=== PATIENT | female | born 1975 | race Caucasian/White ===

== ENCOUNTER 2020-02-06 12:44 | Inpatient (IN) ==
[2020-02-06] MEDS ORDERED: 0.9 % Sodium Chloride 1,000 ML IVC ONE (13:21)
[2020-02-06] MEDS ORDERED: *HR* LORazepam 2 MG/ML VIAL IVP ONE ×2 (13:24→16:34)
[2020-02-06 13:47] LABS: Basophils % 0.3 %; Immature Granulocytes % 0.3 % (0-4); Mean Corpuscular Volume 85.8 fL (83.0-100.0)
[2020-02-06 13:49] LABS: Hematocrit 30.1 % (35.3-44.9); Hemoglobin 9.3 g/dL (11.5-15.4); Immature Platelets 7.7 % (1.1-6.1); Lymphocytes # 0.3 K/mcL (0.6-4.6); Lymphocytes % 7.7 %; Mean Corpuscular HGB Conc 30.9 g/dL (31.6-35.5); Mean Corpuscular Hemoglobin 26.5 pg (28.0-33.3); Mean Platelet Volume 10.7 fL (9.4-12.4); Monocytes # 0.3 K/mcL (0.0-1.3); Monocytes % 9.7 %; Neutrophils # 2.9 K/mcL (1.6-8.9); Red Blood Count 3.51 M/mcL (3.82-4.97); Red Cell Distribution Width 17.6 % (11.5-14.5); White Blood Count 3.5 K/mcL (4.3-11.1)
[2020-02-06 14:11] LABS: Alanine Aminotransferase 49 Units/L (7-52); Albumin 4.1 g/dL (3.5-5.7); Albumin/Globulin Ratio 1.1 (1.1-2.2); Alkaline Phosphatase 81 Units/L (34-104); Aspartate Amino Transferase 147 Units/L (13-39); BUN/Creatinine Ratio 12 (6-26); Bilirubin,Total 2.2 mg/dL (0.3-1.0); Blood Urea Nitrogen 8 mg/dL (6-20); Calcium 8.6 mg/dL (8.6-10.3); Carbon Dioxide 17 mEq/L (23-29); Chloride 91 mEq/L (98-107); Globulin 3.8 g/dL (2.4-3.5); Glucose 105 mg/dL (70-105); Magnesium 1.3 mg/dL (1.6-2.6); Osmolality,Calculated 277 (280-300); Potassium 3.2 mEq/L (3.5-5.1); Sodium 134 mEq/L (136-145); Total Protein 7.9 g/dL (6.4-8.9); eGFR For African Americans > 60 (> 60); eGFR For Non-African Americans > 60 (> 60)
[2020-02-06 14:23] LABS: Platelet Count 25 K/mcL (140-400); Platelet Estimate Marked Decrease (Normal)
[2020-02-06 16:04] LABS: Amphetamine Screen,Urine Negative ng/mL (Cutoff=1000); Barbiturate Screen,Urine Negative ng/mL (Cutoff=200); Benzodiazepines Screen,Urine Positive ng/mL (Cutoff=200); Cannabinoid Screen,Urine Negative ng/mL (Cutoff = 50); Cocaine Screen,Urine Negative ng/mL (Cutoff= 300); Opiate Screen,Urine Negative ng/mL (Cutoff=300); Phencyclidine Screen,Urine Negative ng/mL (Cutoff=25)
[2020-02-06 16:06] LABS: Bacteria,Urine Few per hpf (None-Few); Bilirubin,Urine Small (Negative); Blood,Urine Small (Negative); Clarity,Urine Clear (Clear); Color,Urine Yellow (Yellow); Glucose,Urine (UA) Normal (Normal); Hyaline Casts,Urine Many per lpf (None Seen); Ketones,Urine 100 mg/dL (Negative); Leukocyte Esterase,Urine Negative (Negative); Mucus,Urine Few per lpf (None-Few); Nitrite,Urine Negative (Negative); Protein,Urine 70 mg/dL (Neg-Trace); RBC,Urine 0-3 per hpf (0-3); Specific Gravity,Urine 1.023 (1.010-1.025); Squamous Epithelial Cell,Urine Few per hpf (None-Few); WBC,Urine 0-3 per hpf (0-3)
[2020-02-06] MEDS ORDERED: Ondansetron 4 MG/2 ML VIAL IVP PRN (17:14)
[2020-02-06] MEDS ORDERED: Naloxone 0.4 MG/ML INJ IVP PRN (17:14)
[2020-02-06] MEDS ORDERED: *HR* LORazepam 2 MG/ML VIAL IVP PRN ×2 (17:15)
[2020-02-06] MEDS: Thiamine (B-1) 100 MG, Folic Acid 1 MG, MVI, adult with vitamin K 10 ML in 0.9 % Sodi... IVPB SCH (18:07)
[2020-02-06] MEDS: *HR* LORazepam 2 MG/ML VIAL IVP PRN (20:26)
[2020-02-06] MEDS: Nicotine 21 MG PATCH.TD24 TD SCH (22:06)
[2020-02-07] MEDS: *HR* LORazepam 2 MG/ML VIAL IVP PRN ×2 (00:46→11:55)
[2020-02-07] MEDS: 0.9 % Sodium Chloride 1,000 ML IVC SCH ×2 (01:21→13:55)
[2020-02-07 02:39] LABS: Eosinophils % 0.4 %; Immature Granulocytes % 0.4 % (0-4); Lymphocytes % 26.3 %
[2020-02-07 02:41] LABS: Hemoglobin 8.4 g/dL (11.5-15.4); Immature Platelets 9.1 % (1.1-6.1); Lymphocytes # 0.7 K/mcL (0.6-4.6); Mean Corpuscular Hemoglobin 25.8 pg (28.0-33.3); Mean Corpuscular Volume 86.2 fL (83.0-100.0); Mean Platelet Volume 10.6 fL (9.4-12.4); Monocytes # 0.3 K/mcL (0.0-1.3); Monocytes % 10.4 %; Neutrophils # 1.6 K/mcL (1.6-8.9); Red Blood Count 3.25 M/mcL (3.82-4.97); Red Cell Distribution Width 17.5 % (11.5-14.5); Segmented Neutrophils % 62.5 %; White Blood Count 2.5 K/mcL (4.3-11.1)
[2020-02-07 02:46] LABS: Alanine Aminotransferase 46 Units/L (7-52); Albumin 3.8 g/dL (3.5-5.7); Albumin/Globulin Ratio 1.1 (1.1-2.2); Alkaline Phosphatase 73 Units/L (34-104); Aspartate Amino Transferase 149 Units/L (13-39); BUN/Creatinine Ratio 10 (6-26); Bilirubin,Total 1.9 mg/dL (0.3-1.0); Blood Urea Nitrogen 6 mg/dL (6-20); Calcium 7.9 mg/dL (8.6-10.3); Carbon Dioxide 23 mEq/L (23-29); Chloride 98 mEq/L (98-107); Globulin 3.5 g/dL (2.4-3.5); Glucose 65 mg/dL (70-105); Magnesium 1.2 mg/dL (1.6-2.6); Osmolality,Calculated 272 (280-300); Potassium 3.7 mEq/L (3.5-5.1); Sodium 133 mEq/L (136-145); Total Protein 7.3 g/dL (6.4-8.9); eGFR For African Americans > 60 (> 60); eGFR For Non-African Americans > 60 (> 60)
[2020-02-07 02:50] LABS: Platelet Count 22 K/mcL (140-400)
[2020-02-07] MEDS: Nicotine 21 MG PATCH.TD24 TD SCH (09:12)
[2020-02-07] MEDS: Topiramate 25 MG TABLET PO SCH (09:13)
[2020-02-07] MEDS: Folic Acid 1 MG TABLET PO SCH (09:13)
[2020-02-07] MEDS: risperiDONE 1 MG TABLET PO SCH (09:13)
[2020-02-07] MEDS ORDERED: Isovue-370 500 ML BOTTLE IVP ONE (12:19)
[2020-02-07] MEDS ORDERED: Calcium Gluconate 1gm/50mL 1 GM/50 ML BAG IVPB ONE (12:20)
[2020-02-07] MEDS: Thiamine (B-1) 100 MG, Folic Acid 1 MG, MVI, adult with vitamin K 10 ML in 0.9 % Sodi... IVPB SCH (18:10)
[2020-02-07 18:29] LABS: Immature Reticulocyte % 23.4 % (11.0-38.0); Retculocyte # 0.04 M/mcL (0.05-0.10); Reticulocyte % 1.2 % (1.6-2.8)
[2020-02-07 18:33] LABS: Basophils % 0.4 %; Eosinophils % 0.4 %; Hemoglobin 8.2 g/dL (11.5-15.4); Immature Platelets 8.8 % (1.1-6.1); Lymphocytes # 0.5 K/mcL (0.6-4.6); Lymphocytes % 21.7 %; Mean Corpuscular HGB Conc 30.4 g/dL (31.6-35.5); Mean Corpuscular Hemoglobin 26.1 pg (28.0-33.3); Mean Platelet Volume 9.4 fL (9.4-12.4); Monocytes # 0.2 K/mcL (0.0-1.3); Monocytes % 9.6 %; Neutrophils # 1.6 K/mcL (1.6-8.9); Red Blood Count 3.14 M/mcL (3.82-4.97); Red Cell Distribution Width 17.5 % (11.5-14.5); Segmented Neutrophils % 67.9 %; White Blood Count 2.3 K/mcL (4.3-11.1)
[2020-02-07 18:35] LABS: Platelet Count 24 K/mcL (140-400)
[2020-02-07 18:47] LABS: % Iron Saturation 5 % (15-50); BUN/Creatinine Ratio 10 (6-26); Blood Urea Nitrogen 6 mg/dL (6-20); Calcium 8.9 mg/dL (8.6-10.3); Carbon Dioxide 26 mEq/L (23-29); Chloride 98 mEq/L (98-107); Glucose 131 mg/dL (70-105); Iron 23 mcg/dL (50-170); Lactate Dehydrogenase 205 Units/L (140-271); Magnesium 1.9 mg/dL (1.6-2.6); Osmolality,Calculated 273 (280-300); Potassium 3.6 mEq/L (3.5-5.1); Sodium 132 mEq/L (136-145); Transferrin 316 mg/dL (203-362); eGFR For African Americans > 60 (> 60); eGFR For Non-African Americans > 60 (> 60)
[2020-02-07 18:52] LABS: Platelet Estimate Marked Decrease (Normal)
[2020-02-07 19:06] LABS: Ferritin 59 ng/mL (10-120)
[2020-02-07 19:10] LABS: Folate 20.3 ng/mL (3.0-16.0)
[2020-02-07] MEDS ORDERED: traZODone 50 MG TABLET PO SCH (21:00)
[2020-02-08 04:05] LABS: Basophils % 0.5 %; Eosinophils % 1.6 %; Hematocrit 26.9 % (35.3-44.9); Hemoglobin 8.1 g/dL (11.5-15.4); Lymphocytes # 0.6 K/mcL (0.6-4.6); Lymphocytes % 32.8 %; Mean Corpuscular HGB Conc 30.1 g/dL (31.6-35.5); Mean Corpuscular Hemoglobin 26.6 pg (28.0-33.3); Mean Corpuscular Volume 88.2 fL (83.0-100.0); Monocytes # 0.2 K/mcL (0.0-1.3); Monocytes % 10.1 %; Red Blood Count 3.05 M/mcL (3.82-4.97); Red Cell Distribution Width 17.8 % (11.5-14.5); White Blood Count 1.9 K/mcL (4.3-11.1)
[2020-02-08 04:06] LABS: Neutrophils # 1.1 K/mcL (1.6-8.9); Platelet Count 25 K/mcL (140-400)
[2020-02-08 04:19] LABS: Anisocytosis 1+ (Not Present); Platelet Estimate Marked Decrease (Normal); Polychromasia 1+ (Not Present)
[2020-02-08 04:21] LABS: Magnesium 1.6 mg/dL (1.6-2.6)
[2020-02-08 04:23] LABS: Alanine Aminotransferase 46 Units/L (7-52); Albumin 3.6 g/dL (3.5-5.7); Albumin/Globulin Ratio 1.1 (1.1-2.2); Alkaline Phosphatase 93 Units/L (34-104); Aspartate Amino Transferase 130 Units/L (13-39); BUN/Creatinine Ratio 11 (6-26); Bilirubin,Total 1.8 mg/dL (0.3-1.0); Blood Urea Nitrogen 6 mg/dL (6-20); Calcium 8.8 mg/dL (8.6-10.3); Carbon Dioxide 24 mEq/L (23-29); Chloride 102 mEq/L (98-107); Globulin 3.4 g/dL (2.4-3.5); Glucose 85 mg/dL (70-105); Osmolality,Calculated 279 (280-300); Potassium 3.4 mEq/L (3.5-5.1); Sodium 136 mEq/L (136-145); eGFR For African Americans > 60 (> 60); eGFR For Non-African Americans > 60 (> 60)
[2020-02-08] MEDS: Topiramate 25 MG TABLET PO SCH ×2 (07:57→09:36)
[2020-02-08] MEDS: Nicotine 21 MG PATCH.TD24 TD SCH (07:58)
[2020-02-08] MEDS: risperiDONE 1 MG TABLET PO SCH ×2 (07:58→19:44)
[2020-02-08] MEDS: Folic Acid 1 MG TABLET PO SCH (07:58)
[2020-02-08] MEDS ORDERED: Magnesium Sulfate 1 GM/102 ML PIGGYBACK IVPB ONE (08:31)
[2020-02-08] MEDS ORDERED: Fluticasone Propionate Nasal 50 MCG/SPRAY BOTTLE NS PRN (09:00)
[2020-02-08] MEDS: Loratadine 10 MG TABLET PO SCH (09:36)
[2020-02-08] MEDS: Gabapentin 400 MG CAPSULE PO SCH ×3 (09:36→19:43)
[2020-02-08] MEDS: Cholecalciferol (D-3) 1,000 UNIT (25MCG) TABLET PO SCH (09:36)
[2020-02-08] MEDS: Budesonide/Formoterol 80/4.5 1 PUFF INH IH SCH ×2 (10:45→21:59)
[2020-02-08] MEDS ORDERED: Magnesium Oxide 400 MG TABLET PO ONE (11:15)
[2020-02-08] MEDS: *HR* LORazepam 2 MG/ML VIAL IVP PRN (15:52)
[2020-02-08] MEDS: Thiamine (B-1) 500 MG in 0.9 % Sodium Chloride 50 ML IVPB SCH (18:01)
[2020-02-08] MEDS ORDERED: Haloperidol Lactate 5 MG/ML VIAL IVP PRN (18:29)
[2020-02-08] MEDS ORDERED: *HR* LORazepam 2 MG/ML VIAL IM STA (19:20)
[2020-02-08] MEDS: traZODone 50 MG TABLET PO SCH (19:44)
[2020-02-08] MEDS: Melatonin 3 MG TABLET PO SCH (19:44)
[2020-02-08] MEDS: Dexmedetomidine HCl 400 MCG/100 ML MLS IVC SCH (20:59)
[2020-02-09 05:22] LABS: Basophils % 0.6 %
[2020-02-09 05:24] LABS: Eosinophils # 0.1 K/mcL (0.0-0.6); Eosinophils % 3.1 %; Hematocrit 26.5 % (35.3-44.9); Hemoglobin 7.9 g/dL (11.5-15.4); Immature Platelets 7.1 % (1.1-6.1); Lymphocytes # 0.6 K/mcL (0.6-4.6); Lymphocytes % 38.3 %; Mean Corpuscular HGB Conc 29.8 g/dL (31.6-35.5); Mean Corpuscular Volume 90.4 fL (83.0-100.0); Mean Platelet Volume 10.5 fL (9.4-12.4); Monocytes # 0.2 K/mcL (0.0-1.3); Monocytes % 10.5 %; Neutrophils # 0.8 K/mcL (1.6-8.9); Red Blood Count 2.93 M/mcL (3.82-4.97); Red Cell Distribution Width 18.6 % (11.5-14.5); Segmented Neutrophils % 47.5 %; White Blood Count 1.6 K/mcL (4.3-11.1)
[2020-02-09 05:28] LABS: Platelet Count 29 K/mcL (140-400)
[2020-02-09 05:42] LABS: BUN/Creatinine Ratio 15 (6-26); Blood Urea Nitrogen 7 mg/dL (6-20); Calcium 9.3 mg/dL (8.6-10.3); Carbon Dioxide 22 mEq/L (23-29); Chloride 104 mEq/L (98-107); Glucose 97 mg/dL (70-105); Magnesium 1.4 mg/dL (1.6-2.6); Osmolality,Calculated 280 (280-300); Potassium 3.6 mEq/L (3.5-5.1); Sodium 136 mEq/L (136-145); eGFR For African Americans > 60 (> 60); eGFR For Non-African Americans > 60 (> 60)
[2020-02-09 05:49] LABS: Hypochromasia Present (Not Present); Platelet Estimate Decreased (Normal)
[2020-02-09 05:50] LABS: Anisocytosis 1+ (Not Present)
[2020-02-09] MEDS: Gabapentin 400 MG CAPSULE PO SCH ×3 (08:34→20:45)
[2020-02-09] MEDS: Folic Acid 1 MG TABLET PO SCH (08:34)
[2020-02-09] MEDS: Cholecalciferol (D-3) 1,000 UNIT (25MCG) TABLET PO SCH (08:34)
[2020-02-09] MEDS: Topiramate 25 MG TABLET PO SCH (08:35)
[2020-02-09] MEDS: Loratadine 10 MG TABLET PO SCH (08:35)
[2020-02-09] MEDS: Thiamine (B-1) 500 MG in 0.9 % Sodium Chloride 50 ML IVPB SCH (08:36)
[2020-02-09] MEDS: risperiDONE 1 MG TABLET PO SCH ×2 (08:36→20:45)
[2020-02-09] MEDS: Nicotine 21 MG PATCH.TD24 TD SCH (08:36)
[2020-02-09] MEDS: Budesonide/Formoterol 80/4.5 1 PUFF INH IH SCH ×2 (09:51→22:06)
[2020-02-09] MEDS ORDERED: Iron Sucrose Complex 400 MG in 0.9 % Sodium Chloride 250 ML IVPB ONE (10:53)
[2020-02-09 14:11] LABS: Amphetamines NEGATIVE ng/mL (Cutoff 30); Barbiturates NEGATIVE ng/mL (Cutoff 75); Buprenorphine NEGATIVE ng/mL (Cutoff 1); Cocaine NEGATIVE ng/mL (Cutoff 30); Methadone NEGATIVE ng/mL (Cutoff 40); Methamphetamines NEGATIVE ng/mL (Cutoff 30); Opiates NEGATIVE ng/mL (Cutoff 30); Phencyclidine NEGATIVE ng/mL (Cutoff 15)
[2020-02-09 15:57] LABS: Benzodiazepines POSITIVE ng/mL (Cutoff 75)
[2020-02-09] MEDS: Dexmedetomidine HCl 400 MCG/100 ML MLS IVC SCH (18:46)
[2020-02-09] MEDS: traZODone 50 MG TABLET PO SCH (20:45)
[2020-02-09] MEDS: Melatonin 3 MG TABLET PO SCH (20:45)
[2020-02-10 05:19] LABS: Hemoglobin 8.5 g/dL (11.5-15.4)
[2020-02-10 05:21] LABS: Basophils % 0.7 %; Eosinophils % 1.3 %; Hematocrit 28.8 % (35.3-44.9); Immature Platelets 8.2 % (1.1-6.1); Lymphocytes # 0.5 K/mcL (0.6-4.6); Lymphocytes % 32.5 %; Mean Corpuscular HGB Conc 29.5 g/dL (31.6-35.5); Mean Corpuscular Hemoglobin 26.3 pg (28.0-33.3); Mean Corpuscular Volume 89.2 fL (83.0-100.0); Mean Platelet Volume 10.4 fL (9.4-12.4); Monocytes # 0.2 K/mcL (0.0-1.3); Monocytes % 13.2 %; Neutrophils # 0.8 K/mcL (1.6-8.9); Red Blood Count 3.23 M/mcL (3.82-4.97); Segmented Neutrophils % 52.3 %; White Blood Count 1.5 K/mcL (4.3-11.1)
[2020-02-10 05:37] LABS: BUN/Creatinine Ratio 14 (6-26); Blood Urea Nitrogen 9 mg/dL (6-20); Calcium 9.5 mg/dL (8.6-10.3); Carbon Dioxide 25 mEq/L (23-29); Chloride 104 mEq/L (98-107); Glucose 111 mg/dL (70-105); Osmolality,Calculated 285 (280-300); Sodium 138 mEq/L (136-145); eGFR For African Americans > 60 (> 60); eGFR For Non-African Americans > 60 (> 60)
[2020-02-10 05:42] LABS: Platelet Count 39 K/mcL (140-400)
[2020-02-10 06:20] LABS: Anisocytosis 1+ (Not Present)
[2020-02-10 06:21] LABS: Platelet Estimate Marked Decrease (Normal)
[2020-02-10] MEDS: risperiDONE 1 MG TABLET PO SCH ×2 (08:27→20:01)
[2020-02-10] MEDS: Cholecalciferol (D-3) 1,000 UNIT (25MCG) TABLET PO SCH (08:27)
[2020-02-10] MEDS: Nicotine 21 MG PATCH.TD24 TD SCH (08:27)
[2020-02-10] MEDS: Loratadine 10 MG TABLET PO SCH (08:28)
[2020-02-10] MEDS: Gabapentin 400 MG CAPSULE PO SCH ×3 (08:28→19:59)
[2020-02-10] MEDS: Folic Acid 1 MG TABLET PO SCH (08:28)
[2020-02-10] MEDS: Topiramate 25 MG TABLET PO SCH (08:28)
[2020-02-10] MEDS: Budesonide/Formoterol 80/4.5 1 PUFF INH IH SCH ×2 (10:08→21:48)
[2020-02-10] MEDS: Dexmedetomidine HCl 400 MCG/100 ML MLS IVC SCH (18:25)
[2020-02-10] MEDS: Melatonin 3 MG TABLET PO SCH (19:59)
[2020-02-10] MEDS: traZODone 50 MG TABLET PO SCH (20:00)
[2020-02-11 00:30] LABS: 7-aminoclonazepam Conf <5 ng/mL; Alpha-hydroxyalprazolam Conf <5 ng/mL; Alprazolam Confirmation <5 ng/mL; Chlordiazepoxide Conf <20 ng/mL; Clonazepam Conf <5 ng/mL; Midazolam Confirmation <20 ng/mL; Oxazepam Confirmation <20 ng/mL; Temazepam Confirmation <20 ng/mL
[2020-02-11 07:16] VITALS: BP 122/82
[2020-02-11] MEDS: Nicotine 21 MG PATCH.TD24 TD SCH (07:37)
[2020-02-11] MEDS: Folic Acid 1 MG TABLET PO SCH (07:38)
[2020-02-11] MEDS: Topiramate 25 MG TABLET PO SCH (07:38)
[2020-02-11] MEDS: Loratadine 10 MG TABLET PO SCH (07:39)
[2020-02-11] MEDS: Cholecalciferol (D-3) 1,000 UNIT (25MCG) TABLET PO SCH (07:39)
[2020-02-11] MEDS: Gabapentin 400 MG CAPSULE PO SCH (07:40)
[2020-02-11] MEDS: risperiDONE 1 MG TABLET PO SCH (07:40)
[2020-02-11 08:21] LABS: Basophils % 0.5 %; Hemoglobin 8.9 g/dL (11.5-15.4); Red Cell Distribution Width 20.1 % (11.5-14.5)
[2020-02-11 08:23] LABS: Eosinophils # 0.1 K/mcL (0.0-0.6); Hematocrit 29.9 % (35.3-44.9); Immature Granulocytes % 0.5 % (0-4); Immature Platelets 6.1 % (1.1-6.1); Lymphocytes # 0.6 K/mcL (0.6-4.6); Mean Corpuscular HGB Conc 29.8 g/dL (31.6-35.5); Mean Corpuscular Volume 90.6 fL (83.0-100.0); Mean Platelet Volume 10.5 fL (9.4-12.4); Monocytes # 0.4 K/mcL (0.0-1.3); Monocytes % 17.8 %; Neutrophils # 0.9 K/mcL (1.6-8.9); Segmented Neutrophils % 46.2 %
[2020-02-11 08:25] LABS: Platelet Count 55 K/mcL (140-400)
[2020-02-11 08:41] LABS: BUN/Creatinine Ratio 19 (6-26); Blood Urea Nitrogen 11 mg/dL (6-20); Calcium 9.2 mg/dL (8.6-10.3); Carbon Dioxide 25 mEq/L (23-29); Chloride 105 mEq/L (98-107); Glucose 100 mg/dL (70-105); Osmolality,Calculated 285 (280-300); Sodium 138 mEq/L (136-145); eGFR For African Americans > 60 (> 60); eGFR For Non-African Americans > 60 (> 60)
[2020-02-11 09:07] LABS: Anisocytosis 1+ (Not Present); Hypochromasia Present (Not Present); Platelet Estimate Decreased (Normal)
[2020-02-11] MEDS: Budesonide/Formoterol 80/4.5 1 PUFF INH IH SCH (10:03)
[2020-02-11 10:09] LABS: Alpha-hydroxymidazolam Conf <20 ng/mL; Diazepam Confirmation <5 ng/mL; Lorazepam Confirmation 32 ng/mL; Nordiazepam Confirmation 54 ng/mL
== END 2020-02-11 11:30 | disposition home or self-care (01) | DRG 897 ==
LOC: 3BNU 12:44 → EMEROOARM 12:44 → SUATTDRO 18:24 → 3BNU 19:44 → SUATTDRO 02-08 11:44 → 2NNU 02-08 20:47 → 3ANU 02-10 15:33
PROVIDERS: ADMIT Internal Medicine; ATTEND Internal Medicine

== ENCOUNTER 2020-10-11 21:36 | Inpatient (IN) ==
[2020-10-11] MEDS ORDERED: Naloxone 0.4 MG/ML INJ IVP PRN (23:20)
[2020-10-11] MEDS: Ondansetron 4 MG/2 ML VIAL IVP PRN (23:54)
[2020-10-11] MEDS: Dexmedetomidine HCl 400 MCG/100 ML MLS IVC SCH (23:55)
[2020-10-12] MEDS: Vitamin B Complex/Vit C/Vit E 1 EACH TABLET PO SCH ×2 (00:05→07:40)
[2020-10-12 00:22] LABS: Eosinophils % 0.2 %; Hemoglobin 12.9 g/dL (11.5-15.4); Immature Granulocytes % 0.2 % (0-4); Mean Corpuscular HGB Conc 33.2 g/dL (31.6-35.5); Mean Corpuscular Volume 104.3 fL (83.0-100.0); Red Cell Distribution Width 11.9 % (11.5-14.5)
[2020-10-12 00:24] LABS: Basophils % 0.2 %; Hematocrit 38.8 % (35.3-44.9); Immature Platelets 2.9 % (1.1-6.1); Lymphocytes # 1.4 K/mcL (0.6-4.6); Lymphocytes % 34.4 %; Mean Corpuscular Hemoglobin 34.7 pg (28.0-33.3); Mean Platelet Volume 9.3 fL (9.4-12.4); Monocytes # 0.3 K/mcL (0.0-1.3); Monocytes % 6.8 %; Neutrophils # 2.4 K/mcL (1.6-8.9); Platelet Count 47 K/mcL (140-400); Red Blood Count 3.72 M/mcL (3.82-4.97); Segmented Neutrophils % 58.2 %; White Blood Count 4.1 K/mcL (4.3-11.1)
[2020-10-12 00:31] LABS: INR 1.3; Prothrombin Time 15.3 Seconds (9.4-12.1)
[2020-10-12 00:41] LABS: Alanine Aminotransferase 82 Units/L (7-52); Albumin 4.3 g/dL (3.5-5.7); Albumin/Globulin Ratio 1.1 (1.1-2.2); Alkaline Phosphatase 80 Units/L (34-104); Aspartate Amino Transferase 148 Units/L (13-39); BUN/Creatinine Ratio 11 (6-26); Bilirubin,Total 1.7 mg/dL (0.3-1.0); Blood Urea Nitrogen 6 mg/dL (6-20); Calcium 8.5 mg/dL (8.6-10.3); Carbon Dioxide 13 mEq/L (23-29); Chloride 94 mEq/L (98-107); Globulin 3.9 g/dL (2.4-3.5); Glucose 56 mg/dL (70-105); Lipase 43 Units/L (11-82); Magnesium 1.6 mg/dL (1.6-2.6); Osmolality,Calculated 269 (280-300); Phosphorous 2.5 mg/dL (2.7-4.5); Potassium 4.1 mEq/L (3.5-5.1); Sodium 132 mEq/L (136-145); Total Protein 8.2 g/dL (6.4-8.9); Troponin I < 0.03 ng/mL (< 0.04); eGFR For African Americans > 60 (> 60); eGFR For Non-African Americans > 60 (> 60)
[2020-10-12] MEDS ORDERED: D5% in Water 1,000 ML IVC PRN (01:02)
[2020-10-12] MEDS ORDERED: *HR* Dextrose 50 % in Water (Vial) 50 ML VIAL IVP PRN (01:02)
[2020-10-12] MEDS ORDERED: Dextrose Gel 15 GM/37.5 ML TUBE PO PRN ×2 (01:02)
[2020-10-12] MEDS: Ringers Solution, Lactated 1,000 ML IVC SCH ×2 (04:00→12:42)
[2020-10-12] MEDS: Ipratropium/Albuterol Neb 3 ML IH SCH ×5 (04:06→20:27)
[2020-10-12 06:19] LABS: Hematocrit 38.4 % (35.3-44.9); Hemoglobin 12.7 g/dL (11.5-15.4); Immature Platelets 2.9 % (1.1-6.1); Mean Corpuscular HGB Conc 33.1 g/dL (31.6-35.5); Mean Corpuscular Hemoglobin 34.3 pg (28.0-33.3); Mean Corpuscular Volume 103.8 fL (83.0-100.0); Mean Platelet Volume 9.8 fL (9.4-12.4); Red Blood Count 3.7 M/mcL (3.82-4.97); Red Cell Distribution Width 11.8 % (11.5-14.5); White Blood Count 3.1 K/mcL (4.3-11.1)
[2020-10-12] MEDS: Pantoprazole 40 MG VIAL IVP SCH ×2 (06:29→17:27)
[2020-10-12] MEDS: Budesonide/Formoterol 160/4.5 1 PUFF INH IH SCH ×2 (07:26→20:27)
[2020-10-12] MEDS: Ondansetron 4 MG/2 ML VIAL IVP PRN (07:51)
[2020-10-12] MEDS ORDERED: Folic Acid 1 MG TABLET PO SCH (09:00)
[2020-10-12] MEDS: cefTRIAXone 1,000 MG in Water for inj. (sterile) 10 ML IVP SCH (11:20)
[2020-10-12] MEDS ORDERED: Acetaminophen 325 MG TABLET PO PRN (12:50)
[2020-10-12] MEDS: Dexmedetomidine HCl 400 MCG/100 ML MLS IVC SCH (15:22)
[2020-10-12] MEDS: Thiamine (B-1) 100 MG, Folic Acid 1 MG, MVI, adult with vitamin K 10 ML in 0.9 % Sodi... IVPB SCH (17:28)
[2020-10-12 17:39] LABS: BUN/Creatinine Ratio 10 (6-26); Blood Urea Nitrogen 7 mg/dL (6-20); Calcium 8.7 mg/dL (8.6-10.3); Carbon Dioxide 15 mEq/L (23-29); Chloride 94 mEq/L (98-107); Glucose 80 mg/dL (70-105); Osmolality,Calculated 267 (280-300); Potassium 4.2 mEq/L (3.5-5.1); Sodium 130 mEq/L (136-145); eGFR For African Americans > 60 (> 60); eGFR For Non-African Americans > 60 (> 60)
[2020-10-12] MEDS: D5% in 0.45% NACL 1,000 ML IVC SCH (17:41)
[2020-10-12] MEDS ORDERED: traZODone 50 MG TABLET PO ONE (19:54)
[2020-10-12] MEDS: Melatonin 3 MG TABLET PO SCH (20:22)
[2020-10-12] MEDS: risperiDONE 1 MG TABLET PO SCH (20:22)
[2020-10-12] MEDS: Magnesium Oxide 400 MG TABLET PO SCH (20:23)
[2020-10-12] MEDS: Topiramate 100 MG TABLET PO SCH (20:23)
[2020-10-12] MEDS ORDERED: Ipratropium/Albuterol Neb 3 ML IH PRN (23:47)
[2020-10-13 00:31] LABS: Basophils % 0.5 %; Eosinophils % 1.5 %; Hematocrit 34.3 % (35.3-44.9); Hemoglobin 11.5 g/dL (11.5-15.4); Immature Platelets 3.2 % (1.1-6.1); Lymphocytes # 0.6 K/mcL (0.6-4.6); Lymphocytes % 30.4 %; Mean Corpuscular HGB Conc 33.5 g/dL (31.6-35.5); Mean Corpuscular Hemoglobin 34.8 pg (28.0-33.3); Mean Corpuscular Volume 103.9 fL (83.0-100.0); Mean Platelet Volume 9.6 fL (9.4-12.4); Monocytes # 0.1 K/mcL (0.0-1.3); Monocytes % 6.9 %; Neutrophils # 1.2 K/mcL (1.6-8.9); Red Cell Distribution Width 11.5 % (11.5-14.5); Segmented Neutrophils % 60.7 %
[2020-10-13 00:32] LABS: Platelet Count 31 K/mcL (140-400)
[2020-10-13 00:50] LABS: Alanine Aminotransferase 66 Units/L (7-52); Albumin 3.8 g/dL (3.5-5.7); Albumin/Globulin Ratio 1.2 (1.1-2.2); Alkaline Phosphatase 65 Units/L (34-104); Aspartate Amino Transferase 128 Units/L (13-39); BUN/Creatinine Ratio 10 (6-26); Bilirubin,Total 1.5 mg/dL (0.3-1.0); Blood Urea Nitrogen 6 mg/dL (6-20); Calcium 8.5 mg/dL (8.6-10.3); Carbon Dioxide 20 mEq/L (23-29); Chloride 99 mEq/L (98-107); Globulin 3.3 g/dL (2.4-3.5); Glucose 101 mg/dL (70-105); Osmolality,Calculated 272 (280-300); Sodium 132 mEq/L (136-145); Total Protein 7.1 g/dL (6.4-8.9); eGFR For African Americans > 60 (> 60); eGFR For Non-African Americans > 60 (> 60)
[2020-10-13] MEDS: Pantoprazole 40 MG VIAL IVP SCH ×2 (05:56→17:47)
[2020-10-13] MEDS: D5% in 0.45% NACL 1,000 ML IVC SCH (07:47)
[2020-10-13] MEDS: Magnesium Oxide 400 MG TABLET PO SCH ×2 (09:13→20:02)
[2020-10-13] MEDS: cefTRIAXone 1,000 MG in Water for inj. (sterile) 10 ML IVP SCH (09:13)
[2020-10-13] MEDS: Topiramate 25 MG TABLET PO SCH (09:14)
[2020-10-13] MEDS: Budesonide/Formoterol 160/4.5 1 PUFF INH IH SCH ×2 (09:17→20:04)
[2020-10-13] MEDS ORDERED: diazePAM 10 MG/2 ML SYRINGE IVP PRN ×5 (12:18)
[2020-10-13] MEDS: Thiamine (B-1) 100 MG, Folic Acid 1 MG, MVI, adult with vitamin K 10 ML in 0.9 % Sodi... IVPB SCH (18:03)
[2020-10-13] MEDS: Melatonin 3 MG TABLET PO SCH (20:03)
[2020-10-13] MEDS: Topiramate 100 MG TABLET PO SCH (20:03)
[2020-10-13] MEDS: risperiDONE 1 MG TABLET PO SCH (20:03)
[2020-10-14] MEDS: Pantoprazole 40 MG VIAL IVP SCH (05:18)
[2020-10-14 05:37] LABS: Eosinophils # 0.1 K/mcL (0.0-0.6); Eosinophils % 2.3 %; Hematocrit 38.2 % (35.3-44.9); Hemoglobin 12.8 g/dL (11.5-15.4); Immature Granulocytes % 0.9 % (0-4); Lymphocytes # 0.5 K/mcL (0.6-4.6); Lymphocytes % 22.8 %; Mean Corpuscular HGB Conc 33.5 g/dL (31.6-35.5); Mean Corpuscular Hemoglobin 34.4 pg (28.0-33.3); Mean Corpuscular Volume 102.7 fL (83.0-100.0); Mean Platelet Volume 10.5 fL (9.4-12.4); Monocytes # 0.1 K/mcL (0.0-1.3); Monocytes % 6.4 %; Neutrophils # 1.5 K/mcL (1.6-8.9); Red Blood Count 3.72 M/mcL (3.82-4.97); Red Cell Distribution Width 11.7 % (11.5-14.5); Segmented Neutrophils % 67.6 %; White Blood Count 2.2 K/mcL (4.3-11.1)
[2020-10-14 05:42] LABS: Platelet Count 26 K/mcL (140-400)
[2020-10-14 05:56] LABS: Alanine Aminotransferase 81 Units/L (7-52); Albumin 4.2 g/dL (3.5-5.7); Albumin/Globulin Ratio 1.2 (1.1-2.2); Alkaline Phosphatase 91 Units/L (34-104); Aspartate Amino Transferase 152 Units/L (13-39); BUN/Creatinine Ratio 11 (6-26); Bilirubin,Total 1.9 mg/dL (0.3-1.0); Blood Urea Nitrogen 7 mg/dL (6-20); Calcium 9.4 mg/dL (8.6-10.3); Carbon Dioxide 22 mEq/L (23-29); Chloride 100 mEq/L (98-107); Globulin 3.6 g/dL (2.4-3.5); Glucose 113 mg/dL (70-105); Osmolality,Calculated 271 (280-300); Potassium 3.6 mEq/L (3.5-5.1); Sodium 131 mEq/L (136-145); Total Protein 7.8 g/dL (6.4-8.9); eGFR For African Americans > 60 (> 60); eGFR For Non-African Americans > 60 (> 60)
[2020-10-14] MEDS: Budesonide/Formoterol 160/4.5 1 PUFF INH IH SCH (07:08)
[2020-10-14] MEDS: Magnesium Oxide 400 MG TABLET PO SCH (08:05)
[2020-10-14] MEDS: cefTRIAXone 1,000 MG in Water for inj. (sterile) 10 ML IVP SCH (08:05)
[2020-10-14] MEDS: Topiramate 25 MG TABLET PO SCH (08:05)
[2020-10-14 08:21] VITALS: BP 132/96
== END 2020-10-14 09:14 | disposition home or self-care (01) | DRG 896 ==
LOC: 2NENU → SUATTDRO 10-12 13:00 → 2NNU 10-12 17:55 → 3ANU 10-13 16:11
PROVIDERS: ADMIT Student in an Organized Health Care Education/Training Program; ATTEND Family Medicine

== ENCOUNTER 2021-01-02 23:14 | Inpatient (IN) ==
[2021-01-03] MEDS ORDERED: 0.9 % Sodium Chloride 1,000 ML IVC ONE (00:17)
[2021-01-03] MEDS ORDERED: *HR* HYDROmorphone (PF) 1 MG/ML SYRINGE IVP ONE (00:40)
[2021-01-03] MEDS ORDERED: Naloxone 0.4 MG/ML INJ IVP PRN (01:01)
[2021-01-03] MEDS ORDERED: Acetaminophen 325 MG TABLET PO PRN (01:01)
[2021-01-03] MEDS ORDERED: *HR* HYDROmorphone (PF) 1 MG/ML SYRINGE IVP PRN (01:03)
[2021-01-03 02:33] LABS: Eosinophils % 1.6 %; Hematocrit 39.8 % (35.3-44.9); Lymphocytes % 50.4 %; Mean Corpuscular HGB Conc 32.7 g/dL (31.6-35.5); Red Cell Distribution Width 13.2 % (11.5-14.5)
[2021-01-03 02:35] LABS: Basophils % 0.8 %; Immature Platelets 3.9 % (1.1-6.1); Lymphocytes # 1.3 K/mcL (0.6-4.6); Mean Corpuscular Hemoglobin 33.5 pg (28.0-33.3); Mean Corpuscular Volume 102.6 fL (83.0-100.0); Mean Platelet Volume 10.2 fL (9.4-12.4); Monocytes # 0.3 K/mcL (0.0-1.3); Monocytes % 10.4 %; Neutrophils # 0.9 K/mcL (1.6-8.9); Red Blood Count 3.88 M/mcL (3.82-4.97); Segmented Neutrophils % 36.8 %; White Blood Count 2.5 K/mcL (4.3-11.1)
[2021-01-03] MEDS: Ringers Solution, Lactated 1,000 ML IVC SCH ×4 (02:36→20:34)
[2021-01-03 02:38] LABS: Platelet Count 28 K/mcL (140-400)
[2021-01-03 02:40] LABS: INR 1.4; Prothrombin Time 16.1 Seconds (9.4-12.1)
[2021-01-03 02:52] LABS: Alanine Aminotransferase 58 Units/L (7-52); Albumin 3.9 g/dL (3.5-5.7); Albumin/Globulin Ratio 1.3 (1.1-2.2); Alkaline Phosphatase 74 Units/L (34-104); Amylase 289 Units/L (29-103); Aspartate Amino Transferase 179 Units/L (13-39); BUN/Creatinine Ratio 10 (6-26); Bilirubin,Total 0.8 mg/dL (0.3-1.0); Blood Urea Nitrogen 5 mg/dL (6-20); Calcium 7.9 mg/dL (8.6-10.3); Carbon Dioxide 23 mEq/L (23-29); Chloride 104 mEq/L (98-107); Ethanol 286 mg/dL (Less than 10); Globulin 2.9 g/dL (2.4-3.5); Glucose 63 mg/dL (70-105); Magnesium 1.3 mg/dL (1.6-2.6); Osmolality,Calculated 283 (280-300); Potassium 3.8 mEq/L (3.5-5.1); Sodium 139 mEq/L (136-145); Total Protein 6.8 g/dL (6.4-8.9); eGFR For African Americans > 60 (> 60); eGFR For Non-African Americans > 60 (> 60)
[2021-01-03] MEDS: Ondansetron 4 MG/2 ML VIAL IVP PRN ×2 (02:56→16:12)
[2021-01-03 03:01] LABS: Bilirubin,Urine Negative (Negative); Blood,Urine Negative (Negative); Clarity,Urine Clear (Clear); Color,Urine Light-Yellow (Yellow); Glucose,Urine (UA) Normal (Normal); Ketones,Urine 10 mg/dL (Negative); Leukocyte Esterase,Urine Negative (Negative); Nitrite,Urine Negative (Negative); Protein,Urine Trace mg/dL (Neg-Trace); Urobilinogen,Urine Normal (Normal)
[2021-01-03 03:17] LABS: Amphetamine Screen,Urine Negative ng/mL (Cutoff=1000); Barbiturate Screen,Urine Negative ng/mL (Cutoff=200); Benzodiazepines Screen,Urine Negative ng/mL (Cutoff=200); Cannabinoid Screen,Urine Negative ng/mL (Cutoff = 50); Cocaine Screen,Urine Negative ng/mL (Cutoff= 300); Opiate Screen,Urine Positive ng/mL (Cutoff=300); Phencyclidine Screen,Urine Negative ng/mL (Cutoff=25)
[2021-01-03] MEDS ORDERED: Magnesium Oxide 400 MG TABLET PO ONE (03:23)
[2021-01-03] MEDS ORDERED: diazePAM 10 MG/2 ML SYRINGE IVP PRN ×3 (09:17)
[2021-01-03] MEDS: Thiamine (B-1) 100 MG TABLET PO SCH (09:19)
[2021-01-03] MEDS: Folic Acid 1 MG TABLET PO SCH (09:19)
[2021-01-03] MEDS ORDERED: Calcium Gluconate 1gm/50mL 1 GM/50 ML BAG IVPB ONE (12:10)
[2021-01-03] MEDS: Gabapentin 300 MG CAPSULE PO SCH ×2 (15:30→20:27)
[2021-01-03] MEDS: *HR* HYDROmorphone (PF) 1 MG/ML SYRINGE IVP PRN ×2 (16:09→20:27)
[2021-01-03] MEDS: Budesonide/Formoterol 80/4.5 1 PUFF INH IH SCH (19:47)
[2021-01-03] MEDS: risperiDONE 1 MG TABLET PO SCH (20:26)
[2021-01-03] MEDS: traZODone 50 MG TABLET PO SCH (20:27)
[2021-01-03] MEDS: Topiramate 100 MG TABLET PO SCH (20:27)
[2021-01-04] MEDS: Ringers Solution, Lactated 1,000 ML IVC SCH ×2 (04:54→11:36)
[2021-01-04] MEDS: *HR* HYDROmorphone (PF) 1 MG/ML SYRINGE IVP PRN (04:57)
[2021-01-04 05:34] LABS: Red Cell Distribution Width 12.7 % (11.5-14.5)
[2021-01-04 05:36] LABS: Eosinophils % 1.6 %; Hematocrit 35.6 % (35.3-44.9); Hemoglobin 11.6 g/dL (11.5-15.4); Immature Platelets 4.2 % (1.1-6.1); Lymphocytes # 0.5 K/mcL (0.6-4.6); Lymphocytes % 40.2 %; Mean Corpuscular HGB Conc 32.6 g/dL (31.6-35.5); Mean Corpuscular Hemoglobin 33.6 pg (28.0-33.3); Mean Corpuscular Volume 103.2 fL (83.0-100.0); Mean Platelet Volume 9.4 fL (9.4-12.4); Monocytes # 0.2 K/mcL (0.0-1.3); Monocytes % 17.2 %; Neutrophils # 0.5 K/mcL (1.6-8.9); Red Blood Count 3.45 M/mcL (3.82-4.97); White Blood Count 1.2 K/mcL (4.3-11.1)
[2021-01-04 05:39] LABS: Platelet Count 18 K/mcL (140-400)
[2021-01-04 05:50] LABS: Alanine Aminotransferase 43 Units/L (7-52); Albumin 3.5 g/dL (3.5-5.7); Albumin/Globulin Ratio 1.3 (1.1-2.2); Alkaline Phosphatase 62 Units/L (34-104); Aspartate Amino Transferase 116 Units/L (13-39); BUN/Creatinine Ratio 10 (6-26); Bilirubin,Total 1.2 mg/dL (0.3-1.0); Blood Urea Nitrogen 5 mg/dL (6-20); Calcium 8.3 mg/dL (8.6-10.3); Carbon Dioxide 25 mEq/L (23-29); Chloride 98 mEq/L (98-107); Globulin 2.7 g/dL (2.4-3.5); Glucose 67 mg/dL (70-105); Magnesium 1.6 mg/dL (1.6-2.6); Osmolality,Calculated 276 (280-300); Phosphorous 2.3 mg/dL (2.7-4.5); Potassium 3.8 mEq/L (3.5-5.1); Sodium 135 mEq/L (136-145); Total Protein 6.2 g/dL (6.4-8.9); eGFR For African Americans > 60 (> 60); eGFR For Non-African Americans > 60 (> 60)
[2021-01-04] MEDS: Budesonide/Formoterol 80/4.5 1 PUFF INH IH SCH ×2 (07:32→20:28)
[2021-01-04] MEDS: Thiamine (B-1) 100 MG TABLET PO SCH (08:09)
[2021-01-04] MEDS: Gabapentin 300 MG CAPSULE PO SCH ×3 (08:10→20:29)
[2021-01-04] MEDS: Folic Acid 1 MG TABLET PO SCH (08:10)
[2021-01-04] MEDS: Topiramate 25 MG TABLET PO SCH (08:10)
[2021-01-04 08:12] LABS: Hepatitis B Surface Antigen Nonreactive (Nonreactive)
[2021-01-04] MEDS ORDERED: diazePAM 10 MG/2 ML SYRINGE IVP PRN (08:23)
[2021-01-04 08:40] LABS: Hepatitis B Core IgM Nonreactive (Nonreactive)
[2021-01-04 08:42] LABS: Hepatitis A Antibody IgM Nonreactive (Nonreactive)
[2021-01-04 11:14] LABS: Hepatitis C Virus Antibody Reactive (Nonreactive)
[2021-01-04] MEDS ORDERED: Ringers Solution, Lactated 1,000 ML IVC SCH (12:15)
[2021-01-04] MEDS ORDERED: Furosemide 20 MG/2 ML VIAL IVP ONE (13:19)
[2021-01-04] MEDS: cefTRIAXone 1,000 MG in Water for inj. (sterile) 10 ML IVP SCH (13:38)
[2021-01-04] MEDS: Azithromycin 500 MG in 0.9 % Sodium Chloride 250 ML IVPB SCH (13:39)
[2021-01-04] MEDS: traZODone 50 MG TABLET PO SCH (20:30)
[2021-01-04] MEDS: Topiramate 100 MG TABLET PO SCH (20:30)
[2021-01-04] MEDS: risperiDONE 1 MG TABLET PO SCH (20:30)
[2021-01-05 03:25] LABS: Basophils % 0.8 %; Eosinophils % 1.6 %; Hemoglobin 11.9 g/dL (11.5-15.4); Immature Platelets 6.5 % (1.1-6.1); Lymphocytes % 42.2 %; Mean Corpuscular HGB Conc 33.1 g/dL (31.6-35.5); Mean Corpuscular Hemoglobin 33.9 pg (28.0-33.3); Mean Corpuscular Volume 102.6 fL (83.0-100.0); Mean Platelet Volume 10.9 fL (9.4-12.4); Monocytes # 0.2 K/mcL (0.0-1.3); Monocytes % 16.4 %; Neutrophils # 0.5 K/mcL (1.6-8.9); Nucleated Red Blood Cells 1.6 /100 WBC (0); Red Blood Count 3.51 M/mcL (3.82-4.97); Red Cell Distribution Width 12.8 % (11.5-14.5); White Blood Count 1.3 K/mcL (4.3-11.1)
[2021-01-05 03:28] LABS: Lymphocytes # 0.6 K/mcL (0.6-4.6)
[2021-01-05 03:31] LABS: Platelet Count 23 K/mcL (140-400)
[2021-01-05 03:45] LABS: BUN/Creatinine Ratio 8 (6-26); Blood Urea Nitrogen 4 mg/dL (6-20); Calcium 9.3 mg/dL (8.6-10.3); Carbon Dioxide 24 mEq/L (23-29); Chloride 102 mEq/L (98-107); Glucose 112 mg/dL (70-105); Magnesium 1.3 mg/dL (1.6-2.6); Osmolality,Calculated 278 (280-300); Phosphorous 2.7 mg/dL (2.7-4.5); Potassium 3.5 mEq/L (3.5-5.1); Sodium 135 mEq/L (136-145); eGFR For African Americans > 60 (> 60); eGFR For Non-African Americans > 60 (> 60)
[2021-01-05 04:02] LABS: Platelet Estimate Marked Decrease (Normal)
[2021-01-05] MEDS: Thiamine (B-1) 100 MG TABLET PO SCH (08:06)
[2021-01-05] MEDS: Topiramate 25 MG TABLET PO SCH (08:06)
[2021-01-05] MEDS: Gabapentin 300 MG CAPSULE PO SCH ×3 (08:06→20:22)
[2021-01-05] MEDS: cefTRIAXone 1,000 MG in Water for inj. (sterile) 10 ML IVP SCH (08:07)
[2021-01-05] MEDS: Folic Acid 1 MG TABLET PO SCH (08:07)
[2021-01-05] MEDS: Budesonide/Formoterol 80/4.5 1 PUFF INH IH SCH ×2 (10:05→22:32)
[2021-01-05] MEDS: Azithromycin 500 MG in 0.9 % Sodium Chloride 250 ML IVPB SCH (15:22)
[2021-01-05] MEDS: Topiramate 100 MG TABLET PO SCH (20:21)
[2021-01-05] MEDS: risperiDONE 1 MG TABLET PO SCH (20:22)
[2021-01-05] MEDS: traZODone 50 MG TABLET PO SCH (20:22)
[2021-01-06 05:26] LABS: Basophils % 0.7 %; Immature Granulocytes % 0.7 % (0-4)
[2021-01-06 05:29] LABS: Eosinophils % 1.4 %; Hematocrit 37.4 % (35.3-44.9); Hemoglobin 12.1 g/dL (11.5-15.4); Immature Platelets 7.8 % (1.1-6.1); Lymphocytes % 39.1 %; Mean Corpuscular HGB Conc 32.4 g/dL (31.6-35.5); Mean Corpuscular Hemoglobin 33.2 pg (28.0-33.3); Mean Corpuscular Volume 102.5 fL (83.0-100.0); Mean Platelet Volume 11.3 fL (9.4-12.4); Monocytes # 0.2 K/mcL (0.0-1.3); Monocytes % 15.2 %; Neutrophils # 0.6 K/mcL (1.6-8.9); Red Blood Count 3.65 M/mcL (3.82-4.97); Red Cell Distribution Width 12.7 % (11.5-14.5); Segmented Neutrophils % 42.9 %; White Blood Count 1.4 K/mcL (4.3-11.1)
[2021-01-06 05:30] LABS: Lymphocytes # 0.6 K/mcL (0.6-4.6)
[2021-01-06 05:32] LABS: Platelet Count 25 K/mcL (140-400)
[2021-01-06 05:49] LABS: BUN/Creatinine Ratio 11 (6-26); Blood Urea Nitrogen 5 mg/dL (6-20); Calcium 9.4 mg/dL (8.6-10.3); Carbon Dioxide 20 mEq/L (23-29); Chloride 105 mEq/L (98-107); Glucose 116 mg/dL (70-105); Magnesium 1.2 mg/dL (1.6-2.6); Osmolality,Calculated 280 (280-300); Phosphorous 3.2 mg/dL (2.7-4.5); Potassium 3.4 mEq/L (3.5-5.1); Sodium 136 mEq/L (136-145); eGFR For African Americans > 60 (> 60); eGFR For Non-African Americans > 60 (> 60)
[2021-01-06] MEDS: Budesonide/Formoterol 80/4.5 1 PUFF INH IH SCH (07:34)
[2021-01-06] MEDS: Thiamine (B-1) 100 MG TABLET PO SCH (08:08)
[2021-01-06] MEDS: Gabapentin 300 MG CAPSULE PO SCH (08:08)
[2021-01-06] MEDS: Folic Acid 1 MG TABLET PO SCH (08:09)
[2021-01-06] MEDS: Topiramate 25 MG TABLET PO SCH (08:09)
[2021-01-06] MEDS: cefTRIAXone 1,000 MG in Water for inj. (sterile) 10 ML IVP SCH (08:10)
[2021-01-06 11:01] VITALS: BP 133/89
== END 2021-01-06 11:58 | disposition home or self-care (01) | DRG 438 ==
LOC: EMEROOARM 23:14 → 3BNU 23:14 → SUATTDRO 01-03 14:55
PROVIDERS: ADMIT Internal Medicine; ATTEND Internal Medicine

== ENCOUNTER 2021-02-12 16:30 | Inpatient (IN) ==
[2021-02-12] MEDS ORDERED: Naloxone 0.4 MG/ML INJ IVP PRN (19:33)
[2021-02-12] MEDS: Ondansetron ODT 4 MG TAB.RAPDIS SL PRN ×2 (19:56→23:21)
[2021-02-12 20:14] LABS: Basophils % 0.4 %; Mean Corpuscular Volume 100.5 fL (83.0-100.0)
[2021-02-12 20:16] LABS: Eosinophils % 0.9 %; Hematocrit 36.9 % (35.3-44.9); Hemoglobin 12.3 g/dL (11.5-15.4); Immature Platelets 4.3 % (1.1-6.1); Lymphocytes % 27.9 %; Mean Corpuscular HGB Conc 33.3 g/dL (31.6-35.5); Mean Corpuscular Hemoglobin 33.5 pg (28.0-33.3); Mean Platelet Volume 9.7 fL (9.4-12.4); Monocytes # 0.2 K/mcL (0.0-1.3); Monocytes % 7.7 %; Red Blood Count 3.67 M/mcL (3.82-4.97); White Blood Count 2.3 K/mcL (4.3-11.1)
[2021-02-12] MEDS: 0.9 % Sodium Chloride 1,000 ML IVC SCH (20:19)
[2021-02-12 20:32] LABS: INR 1.3; Prothrombin Time 14.8 Seconds (9.4-12.1)
[2021-02-12 20:36] LABS: Chol/HDL Ratio 2.6 (0-4.9); Cholesterol 213 mg/dL (< 200); HDL Cholesterol 82 mg/dL (40-59); LDL Cholesterol,Calculated 117 mg/dL (< 100); Magnesium 1.2 mg/dL (1.6-2.6); Triglycerides 68 mg/dL (< 150)
[2021-02-12 20:37] LABS: BUN/Creatinine Ratio 13 (6-26); Blood Urea Nitrogen 6 mg/dL (6-20); Calcium 8.7 mg/dL (8.6-10.3); Carbon Dioxide 23 mEq/L (23-29); Chloride 102 mEq/L (98-107); Glucose 87 mg/dL (70-105); Osmolality,Calculated 283 (280-300); Potassium 3.6 mEq/L (3.5-5.1); Sodium 138 mEq/L (136-145); eGFR For African Americans > 60 (> 60); eGFR For Non-African Americans > 60 (> 60)
[2021-02-12 20:38] LABS: Albumin 3.9 g/dL (3.5-5.7); Albumin/Globulin Ratio 1.3 (1.1-2.2); Bilirubin,Direct 0.4 mg/dL (0.0-0.2); Bilirubin,Indirect 0.7 mg/dL (0.0-1.0); Bilirubin,Total 1.1 mg/dL (0.3-1.0); Total Protein 6.9 g/dL (6.4-8.9)
[2021-02-12 20:43] LABS: Troponin I < 0.03 ng/mL (< 0.04)
[2021-02-12 20:58] LABS: Lymphocytes # 0.6 K/mcL (0.6-4.6); Thyroid Stimulating Hormone 1.358 mcIU/mL (0.340-5.600)
[2021-02-12 21:02] LABS: Neutrophils # 1.4 K/mcL (1.6-8.9); Platelet Count 15 K/mcL (140-400)
[2021-02-12 21:04] LABS: Platelet Estimate Marked Decrease (Normal)
[2021-02-12] MEDS ORDERED: diazePAM 10 MG/2 ML SYRINGE IVP STA (21:24)
[2021-02-12 21:26] LABS: Bilirubin,Urine Negative (Negative); Blood,Urine Negative (Negative); Clarity,Urine Clear (Clear); Color,Urine Yellow (Yellow); Glucose,Urine (UA) Normal (Normal); Ketones,Urine Negative (Negative); Leukocyte Esterase,Urine Negative (Negative); Nitrite,Urine Negative (Negative); PH,Urine 6.5 pH Units (5.0-8.0); Protein,Urine Negative (Neg-Trace); Specific Gravity,Urine 1.015 (1.010-1.025)
[2021-02-12 21:47] LABS: Lipase 74 Units/L (11-82)
[2021-02-13] MEDS ORDERED: Prochlorperazine 10 MG/2 ML VIAL IVP PRN (01:21)
[2021-02-13] MEDS: diazePAM 10 MG/2 ML SYRINGE IVP PRN ×6 (01:38→20:04)
[2021-02-13] MEDS: 0.9 % Sodium Chloride 1,000 ML IVC SCH (05:22)
[2021-02-13 05:34] LABS: BUN/Creatinine Ratio 12 (6-26); Blood Urea Nitrogen 5 mg/dL (6-20); Calcium 8.1 mg/dL (8.6-10.3); Carbon Dioxide 22 mEq/L (23-29); Chloride 100 mEq/L (98-107); Ethanol 58 mg/dL (Less than 10); Glucose 80 mg/dL (70-105); Osmolality,Calculated 278 (280-300); Potassium 3.4 mEq/L (3.5-5.1); Sodium 136 mEq/L (136-145); eGFR For African Americans > 60 (> 60); eGFR For Non-African Americans > 60 (> 60)
[2021-02-13] MEDS: Ondansetron ODT 4 MG TAB.RAPDIS SL PRN (08:12)
[2021-02-13] MEDS ORDERED: Isovue-370 500 ML BOTTLE IVP ONE (08:18)
[2021-02-13] MEDS: cefTRIAXone 1,000 MG in Water for inj. (sterile) 10 ML IVP SCH (08:27)
[2021-02-13 08:58] LABS: Alanine Aminotransferase 26 Units/L (7-52); Albumin 3.7 g/dL (3.5-5.7); Albumin/Globulin Ratio 1.2 (1.1-2.2); Alkaline Phosphatase 73 Units/L (34-104); Aspartate Amino Transferase 76 Units/L (13-39); BUN/Creatinine Ratio 8 (6-26); Bilirubin,Total 1.6 mg/dL (0.3-1.0); Blood Urea Nitrogen 4 mg/dL (6-20); C-Reactive Protein 19 mg/L (Less than 10); Calcium 8.3 mg/dL (8.6-10.3); Carbon Dioxide 21 mEq/L (23-29); Chloride 99 mEq/L (98-107); Globulin 3.1 g/dL (2.4-3.5); Glucose 92 mg/dL (70-105); Magnesium 0.9 mg/dL (1.6-2.6); Osmolality,Calculated 275 (280-300); Phosphorous 2.9 mg/dL (2.7-4.5); Potassium 3.5 mEq/L (3.5-5.1); Sodium 134 mEq/L (136-145); Total Protein 6.8 g/dL (6.4-8.9); eGFR For African Americans > 60 (> 60); eGFR For Non-African Americans > 60 (> 60)
[2021-02-13 09:08] LABS: Basophils % 0.6 %; Eosinophils % 0.6 %; Hematocrit 34.2 % (35.3-44.9); Hemoglobin 11.9 g/dL (11.5-15.4); Lymphocytes # 0.5 K/mcL (0.6-4.6); Lymphocytes % 31.6 %; Mean Corpuscular HGB Conc 34.8 g/dL (31.6-35.5); Mean Corpuscular Hemoglobin 34.6 pg (28.0-33.3); Mean Corpuscular Volume 99.4 fL (83.0-100.0); Mean Platelet Volume 9.4 fL (9.4-12.4); Monocytes # 0.2 K/mcL (0.0-1.3); Monocytes % 10.1 %; Neutrophils # 0.9 K/mcL (1.6-8.9); Red Blood Count 3.44 M/mcL (3.82-4.97); Red Cell Distribution Width 12.5 % (11.5-14.5); Segmented Neutrophils % 57.1 %; White Blood Count 1.6 K/mcL (4.3-11.1)
[2021-02-13 09:19] LABS: Platelet Count 11 K/mcL (140-400)
[2021-02-13] MEDS ORDERED: 0.9 % Sodium Chloride 250 ML IVC SCH (09:30)
[2021-02-13] MEDS ORDERED: diazePAM 10 MG/2 ML SYRINGE IVP PRN ×2 (10:33)
[2021-02-13 12:15] LABS: % Iron Saturation 19 % (15-50); Iron 65 mcg/dL (50-170); Transferrin 242 mg/dL (203-362)
[2021-02-13 12:31] LABS: Ferritin 128 ng/mL (10-120)
[2021-02-13] MEDS ORDERED: 0.9 % Sodium Chloride 250 ML ONE (13:34)
[2021-02-13 14:03] LABS: Folate 15.7 ng/mL (3.0-16.0)
[2021-02-13] MEDS ORDERED: Cyanocobalamin (B-12) 1,000 MCG/ML VIAL SQ ONE (15:13)
[2021-02-13] MEDS ORDERED: Acetaminophen 325 MG TABLET PO ONE (16:54)
[2021-02-13] MEDS: Thiamine (B-1) 100 MG, Folic Acid 1 MG, MVI, adult with vitamin K 10 ML in 0.9 % Sodi... IVPB SCH (17:13)
[2021-02-13] MEDS: risperiDONE 1 MG TABLET PO SCH (20:03)
[2021-02-13] MEDS: Gabapentin 300 MG CAPSULE PO SCH (20:03)
[2021-02-13] MEDS: Magnesium Oxide 400 MG TABLET PO SCH (20:03)
[2021-02-13] MEDS: Budesonide/Formoterol 80/4.5 1 PUFF INH IH SCH (20:26)
[2021-02-13] MEDS: Topiramate 100 MG TABLET PO SCH (21:28)
[2021-02-14 02:51] LABS: White Blood Count 1.1 K/mcL (4.3-11.1)
[2021-02-14 02:53] LABS: Hematocrit 33.1 % (35.3-44.9); Hemoglobin 11.2 g/dL (11.5-15.4); Immature Platelets 5.3 % (1.1-6.1); Mean Corpuscular HGB Conc 33.8 g/dL (31.6-35.5); Mean Corpuscular Hemoglobin 33.9 pg (28.0-33.3); Mean Corpuscular Volume 100.3 fL (83.0-100.0); Mean Platelet Volume 12.3 fL (9.4-12.4); Red Blood Count 3.3 M/mcL (3.82-4.97); Red Cell Distribution Width 12.7 % (11.5-14.5)
[2021-02-14 03:18] LABS: Alanine Aminotransferase 21 Units/L (7-52); Albumin 3.4 g/dL (3.5-5.7); Albumin/Globulin Ratio 1.1 (1.1-2.2); Alkaline Phosphatase 71 Units/L (34-104); Aspartate Amino Transferase 60 Units/L (13-39); BUN/Creatinine Ratio 9 (6-26); Bilirubin,Total 1.4 mg/dL (0.3-1.0); Blood Urea Nitrogen 4 mg/dL (6-20); Calcium 8.1 mg/dL (8.6-10.3); Carbon Dioxide 21 mEq/L (23-29); Chloride 105 mEq/L (98-107); Glucose 73 mg/dL (70-105); Magnesium 1.8 mg/dL (1.6-2.6); Osmolality,Calculated 277 (280-300); Phosphorous 2.4 mg/dL (2.7-4.5); Potassium 3.2 mEq/L (3.5-5.1); Sodium 136 mEq/L (136-145); Total Protein 6.4 g/dL (6.4-8.9); eGFR For African Americans > 60 (> 60); eGFR For Non-African Americans > 60 (> 60)
[2021-02-14] MEDS ORDERED: Potassium Phosphate 44 MEQ in 0.9 % Sodium Chloride 250 ML IVPB ONE (07:54)
[2021-02-14] MEDS: Topiramate 25 MG TABLET PO SCH (09:22)
[2021-02-14] MEDS: Gabapentin 300 MG CAPSULE PO SCH ×2 (09:22→20:21)
[2021-02-14] MEDS: Magnesium Oxide 400 MG TABLET PO SCH ×2 (09:22→20:22)
[2021-02-14] MEDS: cefTRIAXone 1,000 MG in Water for inj. (sterile) 10 ML IVP SCH (09:23)
[2021-02-14] MEDS: Budesonide/Formoterol 80/4.5 1 PUFF INH IH SCH ×2 (11:15→20:41)
[2021-02-14] MEDS: Thiamine (B-1) 100 MG, Folic Acid 1 MG, MVI, adult with vitamin K 10 ML in 0.9 % Sodi... IVPB SCH (17:57)
[2021-02-14] MEDS: Topiramate 100 MG TABLET PO SCH (20:21)
[2021-02-14] MEDS: risperiDONE 1 MG TABLET PO SCH (20:22)
[2021-02-14] MEDS: diazePAM 10 MG/2 ML SYRINGE IVP PRN (23:15)
[2021-02-15 07:18] LABS: Immature Platelets 9.1 % (1.1-6.1); Mean Corpuscular HGB Conc 32.4 g/dL (31.6-35.5); Mean Corpuscular Hemoglobin 33.5 pg (28.0-33.3); Mean Corpuscular Volume 103.4 fL (83.0-100.0); Red Blood Count 3.58 M/mcL (3.82-4.97); Red Cell Distribution Width 12.8 % (11.5-14.5); White Blood Count 1.4 K/mcL (4.3-11.1)
[2021-02-15 07:36] LABS: Alanine Aminotransferase 27 Units/L (7-52); Albumin 3.7 g/dL (3.5-5.7); Albumin/Globulin Ratio 1.1 (1.1-2.2); Alkaline Phosphatase 136 Units/L (34-104); Aspartate Amino Transferase 75 Units/L (13-39); BUN/Creatinine Ratio 14 (6-26); Bilirubin,Total 1.1 mg/dL (0.3-1.0); Blood Urea Nitrogen 8 mg/dL (6-20); Calcium 9.4 mg/dL (8.6-10.3); Carbon Dioxide 19 mEq/L (23-29); Chloride 107 mEq/L (98-107); Globulin 3.4 g/dL (2.4-3.5); Glucose 106 mg/dL (70-105); Magnesium 1.4 mg/dL (1.6-2.6); Osmolality,Calculated 279 (280-300); Phosphorous 3.2 mg/dL (2.7-4.5); Potassium 3.6 mEq/L (3.5-5.1); Sodium 135 mEq/L (136-145); Total Protein 7.1 g/dL (6.4-8.9); eGFR For African Americans > 60 (> 60); eGFR For Non-African Americans > 60 (> 60)
[2021-02-15] MEDS: diazePAM 10 MG/2 ML SYRINGE IVP PRN (07:43)
[2021-02-15] MEDS: Topiramate 25 MG TABLET PO SCH (07:44)
[2021-02-15] MEDS: Magnesium Oxide 400 MG TABLET PO SCH ×2 (07:44→19:57)
[2021-02-15] MEDS: cefTRIAXone 1,000 MG in Water for inj. (sterile) 10 ML IVP SCH (07:45)
[2021-02-15] MEDS: Gabapentin 300 MG CAPSULE PO SCH ×2 (07:45→19:57)
[2021-02-15] MEDS: Budesonide/Formoterol 80/4.5 1 PUFF INH IH SCH ×2 (10:11→19:40)
[2021-02-15] MEDS: Thiamine (B-1) 100 MG, Folic Acid 1 MG, MVI, adult with vitamin K 10 ML in 0.9 % Sodi... IVPB SCH (17:28)
[2021-02-15] MEDS: Topiramate 100 MG TABLET PO SCH (19:56)
[2021-02-15] MEDS: risperiDONE 1 MG TABLET PO SCH (20:02)
[2021-02-16] MEDS ORDERED: Ziprasidone 10 MG, Closed System Device IM Kit 1 EACH in Water for inj. (sterile) 0.5 ML IM ONE (01:28)
[2021-02-16] MEDS: Budesonide/Formoterol 80/4.5 1 PUFF INH IH SCH ×2 (07:34→19:35)
[2021-02-16 08:45] LABS: Hematocrit 35.4 % (35.3-44.9); Hemoglobin 11.5 g/dL (11.5-15.4); Mean Corpuscular HGB Conc 32.5 g/dL (31.6-35.5); Mean Corpuscular Hemoglobin 33.7 pg (28.0-33.3); Mean Corpuscular Volume 103.8 fL (83.0-100.0); Mean Platelet Volume 10.8 fL (9.4-12.4); Red Blood Count 3.41 M/mcL (3.82-4.97); Red Cell Distribution Width 13.2 % (11.5-14.5); White Blood Count 1.5 K/mcL (4.3-11.1)
[2021-02-16 08:55] LABS: Platelet Count 28 K/mcL (140-400)
[2021-02-16 09:02] LABS: Alanine Aminotransferase 25 Units/L (7-52); Albumin 3.7 g/dL (3.5-5.7); Albumin/Globulin Ratio 1.1 (1.1-2.2); Alkaline Phosphatase 107 Units/L (34-104); Aspartate Amino Transferase 61 Units/L (13-39); BUN/Creatinine Ratio 23 (6-26); Blood Urea Nitrogen 12 mg/dL (6-20); Calcium 9.4 mg/dL (8.6-10.3); Carbon Dioxide 22 mEq/L (23-29); Chloride 110 mEq/L (98-107); Globulin 3.4 g/dL (2.4-3.5); Glucose 108 mg/dL (70-105); Magnesium 1.5 mg/dL (1.6-2.6); Osmolality,Calculated 290 (280-300); Phosphorous 4.5 mg/dL (2.7-4.5); Potassium 3.6 mEq/L (3.5-5.1); Sodium 140 mEq/L (136-145); Total Protein 7.1 g/dL (6.4-8.9); eGFR For African Americans > 60 (> 60); eGFR For Non-African Americans > 60 (> 60)
[2021-02-16] MEDS: cefTRIAXone 1,000 MG in Water for inj. (sterile) 10 ML IVP SCH (09:43)
[2021-02-16] MEDS: Magnesium Oxide 400 MG TABLET PO SCH ×2 (09:50→21:40)
[2021-02-16] MEDS: Topiramate 25 MG TABLET PO SCH (09:54)
[2021-02-16] MEDS: Gabapentin 300 MG CAPSULE PO SCH ×2 (09:55→21:41)
[2021-02-16] MEDS: Topiramate 100 MG TABLET PO SCH (21:41)
[2021-02-16] MEDS: risperiDONE 1 MG TABLET PO SCH (21:41)
[2021-02-17 06:44] LABS: Hematocrit 35.2 % (35.3-44.9); Red Cell Distribution Width 13.2 % (11.5-14.5)
[2021-02-17 06:45] LABS: Hemoglobin 11.5 g/dL (11.5-15.4); Immature Platelets 4.9 % (1.1-6.1); Mean Corpuscular HGB Conc 32.7 g/dL (31.6-35.5); Mean Corpuscular Hemoglobin 34.2 pg (28.0-33.3); Mean Corpuscular Volume 104.8 fL (83.0-100.0); Mean Platelet Volume 9.6 fL (9.4-12.4); Red Blood Count 3.36 M/mcL (3.82-4.97); White Blood Count 1.2 K/mcL (4.3-11.1)
[2021-02-17 07:04] LABS: BUN/Creatinine Ratio 23 (6-26); Blood Urea Nitrogen 12 mg/dL (6-20); Carbon Dioxide 21 mEq/L (23-29); Chloride 110 mEq/L (98-107); Glucose 116 mg/dL (70-105); Osmolality,Calculated 289 (280-300); Potassium 3.4 mEq/L (3.5-5.1); Sodium 139 mEq/L (136-145); eGFR For African Americans > 60 (> 60); eGFR For Non-African Americans > 60 (> 60)
[2021-02-17] MEDS: Budesonide/Formoterol 80/4.5 1 PUFF INH IH SCH ×2 (07:34→19:36)
[2021-02-17 08:02] LABS: Magnesium 1.6 mg/dL (1.6-2.6)
[2021-02-17] MEDS: Gabapentin 300 MG CAPSULE PO SCH ×2 (09:10→19:44)
[2021-02-17] MEDS: Thiamine (B-1) 100 MG TABLET PO SCH (09:10)
[2021-02-17] MEDS: Folic Acid 1 MG TABLET PO SCH (09:11)
[2021-02-17] MEDS: Vitamin B Complex/Vit C/Vit E 1 EACH TABLET PO SCH (09:11)
[2021-02-17] MEDS: cefTRIAXone 1,000 MG in Water for inj. (sterile) 10 ML IVP SCH (09:11)
[2021-02-17] MEDS: Topiramate 25 MG TABLET PO SCH (09:11)
[2021-02-17] MEDS: Magnesium Oxide 400 MG TABLET PO SCH ×2 (09:11→19:44)
[2021-02-17 09:29] LABS: Phosphorous 4.8 mg/dL (2.7-4.5)
[2021-02-17] MEDS: risperiDONE 1 MG TABLET PO SCH (19:44)
[2021-02-17] MEDS: Topiramate 100 MG TABLET PO SCH (19:45)
[2021-02-17] MEDS ORDERED: traZODone 50 MG TABLET PO ONE (21:00)
[2021-02-17] MEDS ORDERED: Acetaminophen 325 MG TABLET PO PRN (23:39)
[2021-02-18 00:32] LABS: Hematocrit 33.4 % (35.3-44.9); Hemoglobin 10.9 g/dL (11.5-15.4); Mean Corpuscular HGB Conc 32.6 g/dL (31.6-35.5); Mean Platelet Volume 10.9 fL (9.4-12.4); Red Blood Count 3.21 M/mcL (3.82-4.97); Red Cell Distribution Width 13.1 % (11.5-14.5); White Blood Count 1.4 K/mcL (4.3-11.1)
[2021-02-18 00:35] LABS: BUN/Creatinine Ratio 14 (6-26); Blood Urea Nitrogen 9 mg/dL (6-20); Carbon Dioxide 20 mEq/L (23-29); Chloride 109 mEq/L (98-107); Glucose 240 mg/dL (70-105); Magnesium 1.1 mg/dL (1.6-2.6); Osmolality,Calculated 289 (280-300); Phosphorous 3.5 mg/dL (2.7-4.5); Potassium 3.8 mEq/L (3.5-5.1); Sodium 136 mEq/L (136-145); eGFR For African Americans > 60 (> 60); eGFR For Non-African Americans > 60 (> 60)
[2021-02-18] MEDS: Budesonide/Formoterol 80/4.5 1 PUFF INH IH SCH (07:38)
[2021-02-18 07:59] VITALS: BP 106/82; PULSE 94; TEMP 97.6; O2SAT 96
[2021-02-18] MEDS: Folic Acid 1 MG TABLET PO SCH (08:25)
[2021-02-18] MEDS: Topiramate 25 MG TABLET PO SCH (08:25)
[2021-02-18] MEDS: Magnesium Oxide 400 MG TABLET PO SCH (08:25)
[2021-02-18] MEDS: Gabapentin 300 MG CAPSULE PO SCH (08:25)
[2021-02-18] MEDS: Vitamin B Complex/Vit C/Vit E 1 EACH TABLET PO SCH (08:25)
[2021-02-18] MEDS: Thiamine (B-1) 100 MG TABLET PO SCH (08:25)
[2021-02-18] MEDS: cefTRIAXone 1,000 MG in Water for inj. (sterile) 10 ML IVP SCH (08:26)
[2021-02-18 13:15] LABS: Amphetamine Screen,Urine Negative ng/mL (Cutoff=1000); Barbiturate Screen,Urine Negative ng/mL (Cutoff=200); Benzodiazepines Screen,Urine Positive ng/mL (Cutoff=200); Cannabinoid Screen,Urine Negative ng/mL (Cutoff = 50); Cocaine Screen,Urine Negative ng/mL (Cutoff= 300); Opiate Screen,Urine Negative ng/mL (Cutoff=300); Phencyclidine Screen,Urine Negative ng/mL (Cutoff=25)
== END 2021-02-18 12:13 | disposition home or self-care (01) | DRG 808 ==
LOC: 3BNU 16:30 → EMEROOARM 16:30 → SUATTDRO 19:43 → 3BNU 20:07 → 2NNU 02-13 18:36 → 2NENU 02-15 12:15
PROVIDERS: ADMIT Student in an Organized Health Care Education/Training Program; ATTEND Family Medicine

== ENCOUNTER 2021-03-29 14:48 | Inpatient (IN) ==
[2021-03-29] MEDS ORDERED: Thiamine (B-1) 200 MG in 0.9 % Sodium Chloride 50 ML IVPB ONE (15:18)
[2021-03-29] MEDS ORDERED: Folic Acid 1 MG in 0.9 % Sodium Chloride 50 ML IVPB ONE (15:18)
[2021-03-29] MEDS ORDERED: *HR* LORazepam 2 MG/ML VIAL IVP ONE (15:27)
[2021-03-29] MEDS ORDERED: diazePAM 10 MG/2 ML SYRINGE IVP ONE (15:35)
[2021-03-29 15:38] LABS: Basophils % 0.6 %; Immature Granulocytes % 0.3 % (0-4); Red Cell Distribution Width 14.5 % (11.5-14.5)
[2021-03-29 15:40] LABS: Hematocrit 41.2 % (35.3-44.9); Hemoglobin 13.4 g/dL (11.5-15.4); Lymphocytes # 1.6 K/mcL (0.6-4.6); Mean Corpuscular HGB Conc 32.5 g/dL (31.6-35.5); Mean Corpuscular Hemoglobin 33.6 pg (28.0-33.3); Mean Corpuscular Volume 103.3 fL (83.0-100.0); Mean Platelet Volume 10.2 fL (9.4-12.4); Monocytes # 0.1 K/mcL (0.0-1.3); Monocytes % 4.2 %; Neutrophils # 1.4 K/mcL (1.6-8.9); Red Blood Count 3.99 M/mcL (3.82-4.97); Segmented Neutrophils % 44.9 %; White Blood Count 3.1 K/mcL (4.3-11.1)
[2021-03-29 15:42] LABS: Platelet Count 21 K/mcL (140-400)
[2021-03-29 15:47] LABS: INR 1.4; Prothrombin Time 15.6 Seconds (9.4-12.1)
[2021-03-29 16:15] LABS: Alanine Aminotransferase 71 Units/L (7-52); Albumin 4.1 g/dL (3.5-5.7); Albumin/Globulin Ratio 1.2 (1.1-2.2); Alkaline Phosphatase 139 Units/L (34-104); Aspartate Amino Transferase 365 Units/L (13-39); BUN/Creatinine Ratio 13 (6-26); Bilirubin,Total 2.1 mg/dL (0.3-1.0); Blood Urea Nitrogen 6 mg/dL (6-20); Calcium 8.7 mg/dL (8.6-10.3); Carbon Dioxide 22 mEq/L (23-29); Chloride 102 mEq/L (98-107); Globulin 3.5 g/dL (2.4-3.5); Glucose 77 mg/dL (70-105); Lipase 49 Units/L (11-82); Magnesium 1.2 mg/dL (1.6-2.6); Osmolality,Calculated 288 (280-300); Phosphorous 4.1 mg/dL (2.7-4.5); Potassium 3.7 mEq/L (3.5-5.1); Sodium 141 mEq/L (136-145); Total Protein 7.6 g/dL (6.4-8.9); eGFR For African Americans > 60 (> 60); eGFR For Non-African Americans > 60 (> 60)
[2021-03-29 16:22] LABS: Ethanol 506 mg/dL (Less than 10)
[2021-03-29 17:28] LABS: Amphetamine Screen,Urine Negative ng/mL (Cutoff=1000); Barbiturate Screen,Urine Negative ng/mL (Cutoff=200); Benzodiazepines Screen,Urine Positive ng/mL (Cutoff=200); Cannabinoid Screen,Urine Negative ng/mL (Cutoff = 50); Cocaine Screen,Urine Negative ng/mL (Cutoff= 300); Opiate Screen,Urine Negative ng/mL (Cutoff=300); Phencyclidine Screen,Urine Negative ng/mL (Cutoff=25)
[2021-03-29 19:27] LABS: Influenza A PCR Negative (Negative); Influenza B PCR Negative (Negative); Resp. Syncytial Virus PCR Negative (Negative)
[2021-03-29 19:33] LABS: SARS-CoV-2 by PCR (In House) Negative (Negative)
[2021-03-30] MEDS ORDERED: *HR* LORazepam 2 MG/ML VIAL IVP ONE (04:59)
[2021-03-30] MEDS ORDERED: Ondansetron 4 MG/2 ML VIAL IVP ONE ×2 (05:00→09:06)
[2021-03-30] MEDS ORDERED: Ondansetron 4 MG/2 ML VIAL IVP PRN (05:33)
[2021-03-30] MEDS ORDERED: Naloxone 0.4 MG/ML INJ IVP PRN (05:33)
[2021-03-30] MEDS ORDERED: *HR* LORazepam 2 MG/ML VIAL IVP PRN ×2 (05:36)
[2021-03-30] MEDS ORDERED: 0.9 % Sodium Chloride 1,000 ML IVC SCH (05:45)
[2021-03-30 07:33] LABS: Hematocrit 37.1 % (35.3-44.9); Hemoglobin 11.8 g/dL (11.5-15.4); Immature Platelets 3.5 % (1.1-6.1); Lymphocytes # 0.5 K/mcL (0.6-4.6); Lymphocytes % 16.8 %; Mean Corpuscular HGB Conc 31.8 g/dL (31.6-35.5); Mean Corpuscular Hemoglobin 33.7 pg (28.0-33.3); Monocytes # 0.2 K/mcL (0.0-1.3); Monocytes % 6.2 %; Neutrophils # 2.2 K/mcL (1.6-8.9); Red Cell Distribution Width 14.5 % (11.5-14.5); White Blood Count 2.9 K/mcL (4.3-11.1)
[2021-03-30 07:51] LABS: Alanine Aminotransferase 62 Units/L (7-52); Albumin 3.6 g/dL (3.5-5.7); Albumin/Globulin Ratio 1.1 (1.1-2.2); Alkaline Phosphatase 109 Units/L (34-104); Aspartate Amino Transferase 279 Units/L (13-39); BUN/Creatinine Ratio 18 (6-26); Bilirubin,Total 2.4 mg/dL (0.3-1.0); Blood Urea Nitrogen 7 mg/dL (6-20); Carbon Dioxide 18 mEq/L (23-29); Chloride 99 mEq/L (98-107); Chol/HDL Ratio 2.6 (0-4.9); Cholesterol 168 mg/dL (< 200); Globulin 3.2 g/dL (2.4-3.5); Glucose 51 mg/dL (70-105); HDL Cholesterol 65 mg/dL (40-59); LDL Cholesterol,Calculated 77 mg/dL (< 100); Osmolality,Calculated 281 (280-300); Potassium 3.8 mEq/L (3.5-5.1); Sodium 138 mEq/L (136-145); Total Protein 6.8 g/dL (6.4-8.9); Triglycerides 132 mg/dL (< 150); eGFR For African Americans > 60 (> 60); eGFR For Non-African Americans > 60 (> 60)
[2021-03-30 08:24] LABS: Platelet Count 18 K/mcL (140-400)
[2021-03-30] MEDS: *HR* LORazepam 2 MG/ML VIAL IVP PRN ×2 (08:51→18:02)
[2021-03-30] MEDS: Ondansetron 4 MG/2 ML VIAL IVP PRN (18:01)
[2021-03-30] MEDS: Thiamine (B-1) 100 MG, Folic Acid 1 MG, MVI, adult with vitamin K 10 ML in 0.9 % Sodi... IVPB SCH (18:14)
[2021-03-31 05:07] LABS: Eosinophils % 0.8 %; Red Cell Distribution Width 13.8 % (11.5-14.5)
[2021-03-31 05:10] LABS: Hematocrit 31.2 % (35.3-44.9); Hemoglobin 10.5 g/dL (11.5-15.4); Immature Platelets 4.5 % (1.1-6.1); Mean Corpuscular HGB Conc 33.7 g/dL (31.6-35.5); Mean Corpuscular Hemoglobin 34.3 pg (28.0-33.3); Mean Platelet Volume 10.9 fL (9.4-12.4); Monocytes # 0.1 K/mcL (0.0-1.3); Monocytes % 10.2 %; Neutrophils # 0.5 K/mcL (1.6-8.9); Red Blood Count 3.06 M/mcL (3.82-4.97); White Blood Count 1.3 K/mcL (4.3-11.1)
[2021-03-31 05:13] LABS: Lymphocytes # 0.7 K/mcL (0.6-4.6)
[2021-03-31 05:16] LABS: Alanine Aminotransferase 47 Units/L (7-52); Albumin 3.3 g/dL (3.5-5.7); Albumin/Globulin Ratio 1.1 (1.1-2.2); Alkaline Phosphatase 99 Units/L (34-104); Aspartate Amino Transferase 181 Units/L (13-39); BUN/Creatinine Ratio 14 (6-26); Bilirubin,Total 1.8 mg/dL (0.3-1.0); Blood Urea Nitrogen 7 mg/dL (6-20); Calcium 8.1 mg/dL (8.6-10.3); Carbon Dioxide 25 mEq/L (23-29); Chloride 94 mEq/L (98-107); Globulin 3.1 g/dL (2.4-3.5); Glucose 63 mg/dL (70-105); INR 1.5; Osmolality,Calculated 276 (280-300); Platelet Count 11 K/mcL (140-400); Potassium 3.7 mEq/L (3.5-5.1); Prothrombin Time 17.3 Seconds (9.4-12.1); Sodium 135 mEq/L (136-145); Total Protein 6.4 g/dL (6.4-8.9); eGFR For African Americans > 60 (> 60); eGFR For Non-African Americans > 60 (> 60)
[2021-03-31 06:05] LABS: Platelet Estimate Marked Decrease (Normal)
[2021-03-31] MEDS ORDERED: Baclofen 10 MG TABLET PO PRN (07:13)
[2021-03-31] MEDS ORDERED: 0.9 % Sodium Chloride 250 ML IVC SCH (07:45)
[2021-03-31] MEDS: Magnesium Oxide 400 MG TABLET PO SCH ×2 (09:33→20:56)
[2021-03-31] MEDS: Loratadine 10 MG TABLET PO SCH (09:33)
[2021-03-31] MEDS: Cholecalciferol (D-3) 1,000 UNIT (25MCG) TABLET PO SCH (09:33)
[2021-03-31] MEDS: Gabapentin 300 MG CAPSULE PO SCH ×2 (09:33→20:56)
[2021-03-31] MEDS: Topiramate 25 MG TABLET PO SCH (09:38)
[2021-03-31] MEDS: Budesonide/Formoterol 80/4.5 1 PUFF INH IH SCH ×2 (10:10→20:24)
[2021-03-31] MEDS: Ondansetron 4 MG/2 ML VIAL IVP PRN (17:23)
[2021-03-31 19:44] LABS: Basophils % 0.8 %; Eosinophils % 0.8 %
[2021-03-31 19:45] LABS: Hematocrit 33.3 % (35.3-44.9); Hemoglobin 11.1 g/dL (11.5-15.4); Immature Platelets 6.6 % (1.1-6.1); Lymphocytes # 0.5 K/mcL (0.6-4.6); Lymphocytes % 35.1 %; Mean Corpuscular HGB Conc 33.3 g/dL (31.6-35.5); Mean Corpuscular Hemoglobin 33.9 pg (28.0-33.3); Mean Corpuscular Volume 101.8 fL (83.0-100.0); Mean Platelet Volume 10.5 fL (9.4-12.4); Monocytes # 0.1 K/mcL (0.0-1.3); Monocytes % 10.7 %; Neutrophils # 0.7 K/mcL (1.6-8.9); Red Blood Count 3.27 M/mcL (3.82-4.97); Red Cell Distribution Width 13.4 % (11.5-14.5); Segmented Neutrophils % 52.6 %; White Blood Count 1.3 K/mcL (4.3-11.1)
[2021-03-31 20:10] LABS: Platelet Count 13 K/mcL (140-400)
[2021-03-31 20:38] LABS: Platelet Estimate Decreased (Normal)
[2021-03-31] MEDS: Thiamine (B-1) 100 MG, Folic Acid 1 MG, MVI, adult with vitamin K 10 ML in 0.9 % Sodi... IVPB SCH (20:55)
[2021-03-31] MEDS: Topiramate 100 MG TABLET PO SCH (20:56)
[2021-03-31] MEDS: risperiDONE 1 MG TABLET PO SCH (20:56)
[2021-03-31] MEDS: Melatonin 3 MG TABLET PO SCH (20:56)
[2021-03-31] MEDS: *HR* LORazepam 2 MG/ML VIAL IVP PRN (21:02)
[2021-04-01 05:29] LABS: Hemoglobin 10.7 g/dL (11.5-15.4)
[2021-04-01 05:31] LABS: Hematocrit 31.7 % (35.3-44.9); Immature Platelets 8.1 % (1.1-6.1); Mean Corpuscular HGB Conc 33.8 g/dL (31.6-35.5); Mean Corpuscular Volume 100.6 fL (83.0-100.0); Mean Platelet Volume 11.2 fL (9.4-12.4); Red Blood Count 3.15 M/mcL (3.82-4.97); Red Cell Distribution Width 13.3 % (11.5-14.5)
[2021-04-01 05:49] LABS: Alanine Aminotransferase 43 Units/L (7-52); Albumin 3.6 g/dL (3.5-5.7); Albumin/Globulin Ratio 1.3 (1.1-2.2); Alkaline Phosphatase 105 Units/L (34-104); Aspartate Amino Transferase 154 Units/L (13-39); BUN/Creatinine Ratio 11 (6-26); Bilirubin,Total 2.3 mg/dL (0.3-1.0); Blood Urea Nitrogen 6 mg/dL (6-20); Calcium 9.3 mg/dL (8.6-10.3); Carbon Dioxide 28 mEq/L (23-29); Chloride 98 mEq/L (98-107); Globulin 2.8 g/dL (2.4-3.5); Glucose 115 mg/dL (70-105); Osmolality,Calculated 277 (280-300); Sodium 134 mEq/L (136-145); Total Protein 6.4 g/dL (6.4-8.9); eGFR For African Americans > 60 (> 60); eGFR For Non-African Americans > 60 (> 60)
[2021-04-01] MEDS: Budesonide/Formoterol 80/4.5 1 PUFF INH IH SCH ×2 (07:48→21:22)
[2021-04-01] MEDS: Gabapentin 300 MG CAPSULE PO SCH ×2 (08:58→20:22)
[2021-04-01] MEDS: Topiramate 25 MG TABLET PO SCH (08:59)
[2021-04-01] MEDS: Cholecalciferol (D-3) 1,000 UNIT (25MCG) TABLET PO SCH (08:59)
[2021-04-01] MEDS: Loratadine 10 MG TABLET PO SCH (08:59)
[2021-04-01] MEDS: Magnesium Oxide 400 MG TABLET PO SCH ×2 (09:00→20:21)
[2021-04-01] MEDS ORDERED: 0.9 % Sodium Chloride 250 ML IVC SCH (15:45)
[2021-04-01 16:55] LABS: Mean Corpuscular Volume 103.4 fL (83.0-100.0); Monocytes # 0.1 K/mcL (0.0-1.3); Monocytes % 12.7 %; Red Cell Distribution Width 13.5 % (11.5-14.5)
[2021-04-01 16:57] LABS: Hematocrit 33.2 % (35.3-44.9); Lymphocytes # 0.3 K/mcL (0.6-4.6); Lymphocytes % 31.4 %; Mean Corpuscular HGB Conc 33.1 g/dL (31.6-35.5); Mean Corpuscular Hemoglobin 34.3 pg (28.0-33.3); Mean Platelet Volume 10.2 fL (9.4-12.4); Red Blood Count 3.21 M/mcL (3.82-4.97); Segmented Neutrophils % 53.9 %
[2021-04-01 17:00] LABS: Neutrophils # 0.5 K/mcL (1.6-8.9)
[2021-04-01 17:09] LABS: Platelet Count 13 K/mcL (140-400)
[2021-04-01 17:35] LABS: Hypochromasia Present (Not Present); Macrocytosis Present (Not Present)
[2021-04-01 17:36] LABS: Platelet Estimate Marked Decrease (Normal); Polychromasia 1+ (Not Present)
[2021-04-01] MEDS: Thiamine (B-1) 100 MG, Folic Acid 1 MG, MVI, adult with vitamin K 10 ML in 0.9 % Sodi... IVPB SCH (20:20)
[2021-04-01] MEDS: risperiDONE 1 MG TABLET PO SCH (20:21)
[2021-04-01] MEDS: Topiramate 100 MG TABLET PO SCH (20:21)
[2021-04-01] MEDS: Melatonin 3 MG TABLET PO SCH (20:22)
[2021-04-02 06:22] LABS: Basophils % 0.9 %; Eosinophils % 2.7 %; Hematocrit 33.5 % (35.3-44.9); Hemoglobin 10.9 g/dL (11.5-15.4); Immature Granulocytes % 0.9 % (0-4); Lymphocytes # 0.4 K/mcL (0.6-4.6); Mean Corpuscular HGB Conc 32.5 g/dL (31.6-35.5); Mean Corpuscular Hemoglobin 34.1 pg (28.0-33.3); Mean Corpuscular Volume 104.7 fL (83.0-100.0); Mean Platelet Volume 10.9 fL (9.4-12.4); Monocytes # 0.2 K/mcL (0.0-1.3); Monocytes % 13.5 %; Neutrophils # 0.5 K/mcL (1.6-8.9); Red Cell Distribution Width 13.9 % (11.5-14.5); White Blood Count 1.1 K/mcL (4.3-11.1)
[2021-04-02 06:24] LABS: Platelet Count 15 K/mcL (140-400)
[2021-04-02 07:01] LABS: Alanine Aminotransferase 50 Units/L (7-52); Albumin 3.6 g/dL (3.5-5.7); Albumin/Globulin Ratio 1.2 (1.1-2.2); Alkaline Phosphatase 176 Units/L (34-104); Aspartate Amino Transferase 151 Units/L (13-39); BUN/Creatinine Ratio 13 (6-26); Bilirubin,Total 1.9 mg/dL (0.3-1.0); Blood Urea Nitrogen 7 mg/dL (6-20); Calcium 9.2 mg/dL (8.6-10.3); Carbon Dioxide 22 mEq/L (23-29); Chloride 104 mEq/L (98-107); Glucose 173 mg/dL (70-105); Osmolality,Calculated 280 (280-300); Potassium 3.8 mEq/L (3.5-5.1); Sodium 134 mEq/L (136-145); Total Protein 6.6 g/dL (6.4-8.9); eGFR For African Americans > 60 (> 60); eGFR For Non-African Americans > 60 (> 60)
[2021-04-02 08:29] LABS: Platelet Estimate Marked Decrease (Normal)
[2021-04-02] MEDS: Budesonide/Formoterol 80/4.5 1 PUFF INH IH SCH (08:35)
[2021-04-02] MEDS: Topiramate 25 MG TABLET PO SCH (09:08)
[2021-04-02] MEDS: Loratadine 10 MG TABLET PO SCH (09:08)
[2021-04-02] MEDS: Cholecalciferol (D-3) 1,000 UNIT (25MCG) TABLET PO SCH (09:08)
[2021-04-02] MEDS: Gabapentin 300 MG CAPSULE PO SCH (09:08)
[2021-04-02] MEDS: Magnesium Oxide 400 MG TABLET PO SCH (09:08)
[2021-04-02 11:13] VITALS: BP 118/79; PULSE 101; TEMP 98.3; O2SAT 96
== END 2021-04-02 12:53 | disposition left against medical advice (07) | DRG 894 ==
LOC: 2NENU 14:48 → EMEROOARM 14:48 → SUATTDRO 03-30 04:46 → 2NENU 03-30 05:26
PROVIDERS: ADMIT Student in an Organized Health Care Education/Training Program; ATTEND Family Medicine

== ENCOUNTER 2021-05-07 19:44 | Inpatient (IN) ==
[2021-05-07] MEDS ORDERED: MVI, adult with vitamin K 10 ML in 0.9 % Sodium Chloride 1,000 ML IVC ONE (20:02)
[2021-05-07] MEDS ORDERED: 0.9 % Sodium Chloride 1,000 ML IVC ONE (20:02)
[2021-05-07] MEDS ORDERED: Thiamine (B-1) 200 MG in 0.9 % Sodium Chloride 50 ML IVPB ONE (20:02)
[2021-05-07] MEDS ORDERED: Folic Acid 1 MG in 0.9 % Sodium Chloride 50 ML IVPB ONE (20:02)
[2021-05-07] MEDS ORDERED: *HR* LORazepam 2 MG/ML VIAL IVP ONE (20:03)
[2021-05-07 20:21] LABS: Immature Granulocytes % 0.5 % (0-4)
[2021-05-07 20:25] LABS: Basophils % 0.9 %; Eosinophils % 1.4 %; Hemoglobin 12.3 g/dL (11.5-15.4); Immature Platelets 5.1 % (1.1-6.1); Lymphocytes # 1.1 K/mcL (0.6-4.6); Lymphocytes % 50.7 %; Mean Corpuscular HGB Conc 34.2 g/dL (31.6-35.5); Mean Corpuscular Hemoglobin 34.2 pg (28.0-33.3); Mean Platelet Volume 11.2 fL (9.4-12.4); Monocytes # 0.2 K/mcL (0.0-1.3); Monocytes % 9.2 %; Neutrophils # 0.8 K/mcL (1.6-8.9); Red Cell Distribution Width 12.8 % (11.5-14.5); Segmented Neutrophils % 37.3 %; White Blood Count 2.2 K/mcL (4.3-11.1)
[2021-05-07 20:27] LABS: Platelet Count 18 K/mcL (140-400)
[2021-05-07] MEDS ORDERED: Naloxone 0.4 MG/ML INJ IVP PRN (20:28)
[2021-05-07 20:34] LABS: Alanine Aminotransferase 59 Units/L (7-52); Albumin 3.8 g/dL (3.5-5.7); Albumin/Globulin Ratio 1.2 (1.1-2.2); Alkaline Phosphatase 130 Units/L (34-104); Aspartate Amino Transferase 214 Units/L (13-39); BUN/Creatinine Ratio 16 (6-26); Blood Urea Nitrogen 7 mg/dL (6-20); Calcium 8.7 mg/dL (8.6-10.3); Carbon Dioxide 26 mEq/L (23-29); Chloride 102 mEq/L (98-107); Ethanol 232 mg/dL (Less than 10); Globulin 3.3 g/dL (2.4-3.5); Glucose 84 mg/dL (70-105); Lipase 53 Units/L (11-82); Osmolality,Calculated 287 (280-300); Potassium 3.8 mEq/L (3.5-5.1); Sodium 140 mEq/L (136-145); Total Protein 7.1 g/dL (6.4-8.9); eGFR For African Americans > 60 (> 60); eGFR For Non-African Americans > 60 (> 60)
[2021-05-07] MEDS: 0.9 % Sodium Chloride 1,000 ML IVC SCH (21:51)
[2021-05-07] MEDS ORDERED: Ipratropium/Albuterol Neb 3 ML IH PRN (22:25)
[2021-05-08 03:53] LABS: Eosinophils % 1.5 %; Hemoglobin 11.3 g/dL (11.5-15.4)
[2021-05-08 03:56] LABS: Basophils % 0.7 %; Hematocrit 34.7 % (35.3-44.9); Immature Platelets 4.4 % (1.1-6.1); Lymphocytes # 0.7 K/mcL (0.6-4.6); Lymphocytes % 51.9 %; Mean Corpuscular HGB Conc 32.6 g/dL (31.6-35.5); Mean Corpuscular Hemoglobin 32.9 pg (28.0-33.3); Mean Corpuscular Volume 101.2 fL (83.0-100.0); Monocytes # 0.2 K/mcL (0.0-1.3); Monocytes % 10.4 %; Neutrophils # 0.5 K/mcL (1.6-8.9); Red Blood Count 3.43 M/mcL (3.82-4.97); Red Cell Distribution Width 12.8 % (11.5-14.5); Segmented Neutrophils % 35.5 %; White Blood Count 1.4 K/mcL (4.3-11.1)
[2021-05-08 03:59] LABS: Platelet Count 12 K/mcL (140-400)
[2021-05-08 04:08] LABS: BUN/Creatinine Ratio 9 (6-26); Blood Urea Nitrogen 4 mg/dL (6-20); Calcium 7.8 mg/dL (8.6-10.3); Carbon Dioxide 25 mEq/L (23-29); Chloride 102 mEq/L (98-107); Ethanol 95 mg/dL (Less than 10); Glucose 73 mg/dL (70-105); Magnesium 0.9 mg/dL (1.6-2.6); Osmolality,Calculated 283 (280-300); Potassium 3.5 mEq/L (3.5-5.1); Sodium 139 mEq/L (136-145); eGFR For African Americans > 60 (> 60); eGFR For Non-African Americans > 60 (> 60)
[2021-05-08 04:14] LABS: Albumin 3.5 g/dL (3.5-5.7); Albumin/Globulin Ratio 1.2 (1.1-2.2); Bilirubin,Direct 0.5 mg/dL (0.0-0.2); Bilirubin,Indirect 0.5 mg/dL (0.0-1.0); Total Protein 6.5 g/dL (6.4-8.9)
[2021-05-08 04:28] LABS: INR 1.3; Prothrombin Time 14.4 Seconds (9.4-12.1)
[2021-05-08] MEDS: *HR* LORazepam 2 MG/ML VIAL IVP PRN ×5 (04:59→20:13)
[2021-05-08] MEDS: 0.9 % Sodium Chloride 1,000 ML IVC SCH (06:38)
[2021-05-08] MEDS: Ondansetron 4 MG/2 ML VIAL IVP PRN ×2 (07:44→20:25)
[2021-05-08] MEDS ORDERED: Baclofen 10 MG TABLET PO PRN (09:49)
[2021-05-08] MEDS: Topiramate 25 MG TABLET PO SCH (10:20)
[2021-05-08] MEDS: Folic Acid 1 MG TABLET PO SCH (10:20)
[2021-05-08] MEDS: Magnesium Oxide 400 MG TABLET PO SCH ×2 (10:20→20:17)
[2021-05-08] MEDS: Budesonide/Formoterol 80/4.5 1 PUFF INH IH SCH ×2 (11:12→20:21)
[2021-05-08] MEDS ORDERED: *HR* LORazepam 2 MG/ML VIAL IVP PRN (13:17)
[2021-05-08] MEDS: Thiamine (B-1) 100 MG TABLET PO SCH (14:07)
[2021-05-08] MEDS: Multivit/Ca/Min/Fe/FA 1 TAB TABLET PO SCH (14:07)
[2021-05-08] MEDS ORDERED: Ibuprofen 400 MG TABLET PO PRN (16:08)
[2021-05-08] MEDS: risperiDONE 1 MG TABLET PO SCH (20:17)
[2021-05-08] MEDS: Gabapentin 300 MG CAPSULE PO SCH (20:17)
[2021-05-08] MEDS: Topiramate 100 MG TABLET PO SCH (20:17)
[2021-05-08] MEDS: Melatonin 3 MG TABLET PO SCH (20:17)
[2021-05-08] MEDS: traZODone 50 MG TABLET PO PRN (20:25)
[2021-05-09 01:04] LABS: Basophils % 0.7 %; Eosinophils % 1.5 %; Hemoglobin 11.7 g/dL (11.5-15.4); Immature Platelets 6.7 % (1.1-6.1); Lymphocytes # 0.7 K/mcL (0.6-4.6); Lymphocytes % 52.6 %; Mean Corpuscular HGB Conc 33.4 g/dL (31.6-35.5); Mean Corpuscular Hemoglobin 33.9 pg (28.0-33.3); Mean Corpuscular Volume 101.4 fL (83.0-100.0); Mean Platelet Volume 11.7 fL (9.4-12.4); Monocytes # 0.2 K/mcL (0.0-1.3); Monocytes % 13.1 %; Neutrophils # 0.5 K/mcL (1.6-8.9); Red Blood Count 3.45 M/mcL (3.82-4.97); Red Cell Distribution Width 12.3 % (11.5-14.5); Segmented Neutrophils % 32.1 %; White Blood Count 1.4 K/mcL (4.3-11.1)
[2021-05-09 01:18] LABS: BUN/Creatinine Ratio 8 (6-26); Blood Urea Nitrogen 5 mg/dL (6-20); Calcium 8.5 mg/dL (8.6-10.3); Carbon Dioxide 24 mEq/L (23-29); Chloride 97 mEq/L (98-107); Glucose 114 mg/dL (70-105); Magnesium 0.7 mg/dL (1.6-2.6); Osmolality,Calculated 276 (280-300); Potassium 3.2 mEq/L (3.5-5.1); Sodium 134 mEq/L (136-145); eGFR For African Americans > 60 (> 60); eGFR For Non-African Americans > 60 (> 60)
[2021-05-09 02:08] LABS: Platelet Count 13 K/mcL (140-400)
[2021-05-09 02:09] LABS: Platelet Estimate Marked Decrease (Normal)
[2021-05-09] MEDS ORDERED: Potassium Chloride Elixir 20 MEQ/15 ML UDC PO ONE (03:14)
[2021-05-09] MEDS ORDERED: Calcium Gluconate 1gm/50mL 1 GM/50 ML BAG IVPB ONE (03:15)
[2021-05-09] MEDS: Folic Acid 1 MG TABLET PO SCH (08:02)
[2021-05-09] MEDS: Multivit/Ca/Min/Fe/FA 1 TAB TABLET PO SCH (08:02)
[2021-05-09] MEDS: Gabapentin 300 MG CAPSULE PO SCH ×2 (08:02→21:37)
[2021-05-09] MEDS: Thiamine (B-1) 100 MG TABLET PO SCH (08:03)
[2021-05-09] MEDS: Topiramate 25 MG TABLET PO SCH (08:03)
[2021-05-09] MEDS: Magnesium Oxide 400 MG TABLET PO SCH ×2 (08:03→21:38)
[2021-05-09] MEDS: Budesonide/Formoterol 80/4.5 1 PUFF INH IH SCH ×2 (08:04→20:33)
[2021-05-09] MEDS: traZODone 50 MG TABLET PO PRN (21:37)
[2021-05-09] MEDS: Topiramate 100 MG TABLET PO SCH (21:38)
[2021-05-09] MEDS: Melatonin 3 MG TABLET PO SCH (21:38)
[2021-05-09] MEDS: risperiDONE 1 MG TABLET PO SCH (21:38)
[2021-05-10 05:22] LABS: Eosinophils % 2.5 %; Hemoglobin 11.6 g/dL (11.5-15.4); Lymphocytes # 0.4 K/mcL (0.6-4.6); Lymphocytes % 36.1 %; Red Cell Distribution Width 12.6 % (11.5-14.5); White Blood Count 1.2 K/mcL (4.3-11.1)
[2021-05-10 05:23] LABS: Basophils % 0.8 %; Hematocrit 35.7 % (35.3-44.9); Immature Platelets 12.9 % (1.1-6.1); Mean Corpuscular HGB Conc 32.5 g/dL (31.6-35.5); Mean Corpuscular Hemoglobin 32.7 pg (28.0-33.3); Mean Corpuscular Volume 100.6 fL (83.0-100.0); Mean Platelet Volume 12.2 fL (9.4-12.4); Monocytes # 0.1 K/mcL (0.0-1.3); Monocytes % 10.9 %; Neutrophils # 0.6 K/mcL (1.6-8.9); Red Blood Count 3.55 M/mcL (3.82-4.97); Segmented Neutrophils % 49.7 %
[2021-05-10 05:32] LABS: Platelet Count 13 K/mcL (140-400)
[2021-05-10 05:39] LABS: BUN/Creatinine Ratio 17 (6-26); Blood Urea Nitrogen 9 mg/dL (6-20); Calcium 10.3 mg/dL (8.6-10.3); Carbon Dioxide 23 mEq/L (23-29); Chloride 103 mEq/L (98-107); Glucose 117 mg/dL (70-105); Magnesium 1.2 mg/dL (1.6-2.6); Osmolality,Calculated 280 (280-300); Potassium 3.6 mEq/L (3.5-5.1); Sodium 135 mEq/L (136-145); eGFR For African Americans > 60 (> 60); eGFR For Non-African Americans > 60 (> 60)
[2021-05-10] MEDS: Budesonide/Formoterol 80/4.5 1 PUFF INH IH SCH (07:40)
[2021-05-10 07:51] VITALS: BP 106/76; PULSE 112; TEMP 97.8; O2SAT 97
[2021-05-10] MEDS: Topiramate 25 MG TABLET PO SCH (07:55)
[2021-05-10] MEDS: Thiamine (B-1) 100 MG TABLET PO SCH (07:55)
[2021-05-10] MEDS: Magnesium Oxide 400 MG TABLET PO SCH (07:55)
[2021-05-10] MEDS: Multivit/Ca/Min/Fe/FA 1 TAB TABLET PO SCH (07:56)
[2021-05-10] MEDS: *HR* LORazepam 2 MG/ML VIAL IVP PRN (07:56)
[2021-05-10] MEDS: Gabapentin 300 MG CAPSULE PO SCH (07:56)
[2021-05-10] MEDS: Folic Acid 1 MG TABLET PO SCH (07:56)
[2021-05-10] MEDS ORDERED: Magnesium Oxide 400 MG TABLET PO ONE (10:37)
== END 2021-05-10 11:11 | disposition home or self-care (01) | DRG 897 ==
LOC: 2ANU 19:44 → EMEROOARM 19:44 → SUATTDRO 21:19 → 2ANU 22:22
PROVIDERS: ADMIT Student in an Organized Health Care Education/Training Program; ATTEND Hospitalist

== ENCOUNTER 2021-08-30 08:56 | Inpatient (IN) ==
[2021-08-30] MEDS ORDERED: 0.9 % Sodium Chloride 1,000 ML IVC ONE (09:39)
[2021-08-30 10:04] LABS: Red Cell Distribution Width 14.2 % (11.5-14.5)
[2021-08-30 10:06] LABS: Basophils % 0.4 %; Hematocrit 34.7 % (35.3-44.9); Hemoglobin 11.2 g/dL (11.5-15.4); Immature Granulocytes % 0.7 % (0-4); Immature Platelets 1.7 % (1.1-6.1); Lymphocytes # 0.3 K/mcL (0.6-4.6); Lymphocytes % 12.1 %; Mean Corpuscular HGB Conc 32.3 g/dL (31.6-35.5); Mean Corpuscular Volume 89.9 fL (83.0-100.0); Mean Platelet Volume 9.1 fL (9.4-12.4); Monocytes # 0.2 K/mcL (0.0-1.3); Monocytes % 5.7 %; Neutrophils # 2.3 K/mcL (1.6-8.9); Red Blood Count 3.86 M/mcL (3.82-4.97); Segmented Neutrophils % 81.1 %; White Blood Count 2.8 K/mcL (4.3-11.1)
[2021-08-30 10:08] LABS: Platelet Count 76 K/mcL (140-400)
[2021-08-30 10:26] LABS: Alanine Aminotransferase 23 Units/L (7-52); Albumin/Globulin Ratio 1.2 (1.1-2.2); Alkaline Phosphatase 58 Units/L (34-104); Aspartate Amino Transferase 37 Units/L (13-39); BUN/Creatinine Ratio 8 (6-26); Bilirubin,Direct 0.5 mg/dL (0.0-0.2); Bilirubin,Total 1.5 mg/dL (0.3-1.0); Blood Urea Nitrogen 5 mg/dL (6-20); Calcium 9.2 mg/dL (8.6-10.3); Carbon Dioxide 14 mEq/L (23-29); Chloride 97 mEq/L (98-107); Ethanol < 10 mg/dL (Less than 10); Globulin 3.4 g/dL (2.4-3.5); Glucose 122 mg/dL (70-105); Lipase 5 Units/L (11-82); Osmolality,Calculated 277 (280-300); Potassium 3.7 mEq/L (3.5-5.1); Sodium 134 mEq/L (136-145); Total Protein 7.4 g/dL (6.4-8.9); eGFR For African Americans > 60 (> 60); eGFR For Non-African Americans > 60 (> 60)
[2021-08-30] MEDS ORDERED: Ondansetron 4 MG/2 ML VIAL IVP ONE ×2 (10:47→13:14)
[2021-08-30] MEDS ORDERED: 0.9 % Sodium Chloride 1,000 ML IV ONE (10:48)
[2021-08-30 11:50] LABS: Amphetamine Screen,Urine Negative ng/mL (Cutoff=1000); Barbiturate Screen,Urine Negative ng/mL (Cutoff=200); Benzodiazepines Screen,Urine Negative ng/mL (Cutoff=200); Cannabinoid Screen,Urine Negative ng/mL (Cutoff = 50); Cocaine Screen,Urine Negative ng/mL (Cutoff= 300); Opiate Screen,Urine Negative ng/mL (Cutoff=300); Phencyclidine Screen,Urine Negative ng/mL (Cutoff=25)
[2021-08-30 12:03] LABS: Bacteria,Urine Few per hpf (None-Few); Bilirubin,Urine Negative (Negative); Blood,Urine Negative (Negative); Clarity,Urine Clear (Clear); Color,Urine Light-Yellow (Yellow); Glucose,Urine (UA) Normal (Normal); Hyaline Casts,Urine Few per lpf (None Seen); Ketones,Urine >150 mg/dL (Negative); Leukocyte Esterase,Urine Negative (Negative); Mucus,Urine Few per lpf (None-Few); Nitrite,Urine Negative (Negative); PH,Urine 5.5 pH Units (5.0-8.0); Protein,Urine 50 mg/dL (Neg-Trace); RBC,Urine 0-3 per hpf (0-3); Renal Epithelial Cells,Urine Few per hpf (None-Few); Specific Gravity,Urine 1.021 (1.010-1.025); Squamous Epithelial Cell,Urine Moderate per hpf (None-Few); Transitional Epi Cells,Urine Few per hpf (None-Few)
[2021-08-30] MEDS ORDERED: *HR* LORazepam 2 MG/ML VIAL IVP ONE (13:14)
[2021-08-30] MEDS ORDERED: Ondansetron ODT 4 MG TAB.RAPDIS SL PRN (14:10)
[2021-08-30] MEDS ORDERED: Mag Hydrox/Al Hydrox/Simeth 30 ML UDC PO PRN (14:10)
[2021-08-30] MEDS ORDERED: Naloxone 0.4 MG/ML INJ IVP PRN (14:10)
[2021-08-30] MEDS ORDERED: *HR* LORazepam 2 MG/ML VIAL IVP PRN ×3 (14:15)
[2021-08-30 15:02] LABS: Phosphorous 3.7 mg/dL (2.7-4.5)
[2021-08-30] MEDS: Thiamine (B-1) 100 MG TABLET PO SCH (18:02)
[2021-08-30] MEDS: Folic Acid 1 MG TABLET PO SCH (18:03)
[2021-08-30] MEDS: Gabapentin 300 MG CAPSULE PO SCH (20:47)
[2021-08-30] MEDS: traZODone 50 MG TABLET PO SCH (20:47)
[2021-08-30] MEDS: Magnesium Oxide 400 MG TABLET PO SCH (20:47)
[2021-08-30] MEDS: Melatonin 3 MG TABLET PO PRN (20:47)
[2021-08-30] MEDS: Topiramate 100 MG TABLET PO SCH (20:48)
[2021-08-30] MEDS: risperiDONE 1 MG TABLET PO SCH (20:48)
[2021-08-31 02:38] LABS: Mean Corpuscular Volume 90.9 fL (83.0-100.0)
[2021-08-31 02:40] LABS: Hematocrit 31.9 % (35.3-44.9); Immature Platelets 2.8 % (1.1-6.1); Mean Corpuscular HGB Conc 31.3 g/dL (31.6-35.5); Mean Corpuscular Hemoglobin 28.5 pg (28.0-33.3); Mean Platelet Volume 10.3 fL (9.4-12.4); Red Blood Count 3.51 M/mcL (3.82-4.97); Red Cell Distribution Width 14.3 % (11.5-14.5); White Blood Count 1.9 K/mcL (4.3-11.1)
[2021-08-31 03:00] LABS: Alanine Aminotransferase 19 Units/L (7-52); Albumin 3.6 g/dL (3.5-5.7); Albumin/Globulin Ratio 1.2 (1.1-2.2); Alkaline Phosphatase 45 Units/L (34-104); Aspartate Amino Transferase 42 Units/L (13-39); BUN/Creatinine Ratio 7 (6-26); Blood Urea Nitrogen 4 mg/dL (6-20); Calcium 8.8 mg/dL (8.6-10.3); Carbon Dioxide 22 mEq/L (23-29); Chloride 103 mEq/L (98-107); Globulin 2.9 g/dL (2.4-3.5); Glucose 68 mg/dL (70-105); Osmolality,Calculated 277 (280-300); Potassium 3.8 mEq/L (3.5-5.1); Sodium 136 mEq/L (136-145); Total Protein 6.5 g/dL (6.4-8.9); eGFR For African Americans > 60 (> 60); eGFR For Non-African Americans > 60 (> 60)
[2021-08-31] MEDS: Budesonide/Formoterol 80/4.5 1 PUFF INH IH SCH ×3 (03:27→20:05)
[2021-08-31] MEDS: Folic Acid 1 MG TABLET PO SCH (08:39)
[2021-08-31] MEDS: Topiramate 25 MG TABLET PO SCH (08:40)
[2021-08-31] MEDS: Thiamine (B-1) 100 MG TABLET PO SCH (08:40)
[2021-08-31] MEDS: Gabapentin 300 MG CAPSULE PO SCH ×3 (08:41→20:09)
[2021-08-31] MEDS: Magnesium Oxide 400 MG TABLET PO SCH ×2 (08:41→20:09)
[2021-08-31] MEDS: Loratadine 10 MG TABLET PO SCH (08:42)
[2021-08-31] MEDS: Acetaminophen 325 MG TABLET PO PRN (11:40)
[2021-08-31] MEDS ORDERED: *HR* Dextrose 50 % in Water (Syg) 50 ML SYRINGE IVP PRN (15:01)
[2021-08-31] MEDS ORDERED: Dextrose Gel 15 GM/37.5 ML TUBE PO PRN ×2 (15:01)
[2021-08-31] MEDS ORDERED: D5% in Water 1,000 ML IVC PRN (15:01)
[2021-08-31] MEDS: Topiramate 100 MG TABLET PO SCH (20:08)
[2021-08-31] MEDS: Insulin LISPRO 300 UNITS/3 ML VIAL SUBQ SCH ×2 (20:08→23:03)
[2021-08-31] MEDS: traZODone 50 MG TABLET PO SCH (20:09)
[2021-08-31] MEDS: Melatonin 3 MG TABLET PO PRN (20:09)
[2021-08-31] MEDS: risperiDONE 1 MG TABLET PO SCH (20:09)
[2021-09-01] MEDS: Insulin LISPRO 300 UNITS/3 ML VIAL SUBQ SCH ×4 (07:26→20:46)
[2021-09-01] MEDS: Budesonide/Formoterol 80/4.5 1 PUFF INH IH SCH ×2 (08:07→20:07)
[2021-09-01] MEDS: Gabapentin 300 MG CAPSULE PO SCH ×3 (09:06→21:00)
[2021-09-01] MEDS: Thiamine (B-1) 100 MG TABLET PO SCH (09:06)
[2021-09-01] MEDS: Loratadine 10 MG TABLET PO SCH (09:06)
[2021-09-01] MEDS: Magnesium Oxide 400 MG TABLET PO SCH ×2 (09:06→21:00)
[2021-09-01] MEDS: Folic Acid 1 MG TABLET PO SCH (09:06)
[2021-09-01] MEDS: Topiramate 25 MG TABLET PO SCH (09:07)
[2021-09-01 11:01] LABS: Mean Corpuscular HGB Conc 31.2 g/dL (31.6-35.5)
[2021-09-01 11:03] LABS: Hematocrit 31.4 % (35.3-44.9); Hemoglobin 9.8 g/dL (11.5-15.4); Immature Platelets 2.3 % (1.1-6.1); Mean Corpuscular Hemoglobin 29.1 pg (28.0-33.3); Mean Corpuscular Volume 93.2 fL (83.0-100.0); Mean Platelet Volume 10.5 fL (9.4-12.4); Red Blood Count 3.37 M/mcL (3.82-4.97); Red Cell Distribution Width 14.5 % (11.5-14.5); White Blood Count 1.5 K/mcL (4.3-11.1)
[2021-09-01 11:23] LABS: Alanine Aminotransferase 17 Units/L (7-52); Albumin 3.4 g/dL (3.5-5.7); Albumin/Globulin Ratio 1.2 (1.1-2.2); Alkaline Phosphatase 82 Units/L (34-104); Aspartate Amino Transferase 27 Units/L (13-39); BUN/Creatinine Ratio 12 (6-26); Bilirubin,Total 0.6 mg/dL (0.3-1.0); Blood Urea Nitrogen 8 mg/dL (6-20); Calcium 8.9 mg/dL (8.6-10.3); Carbon Dioxide 23 mEq/L (23-29); Chloride 107 mEq/L (98-107); Globulin 2.9 g/dL (2.4-3.5); Glucose 197 mg/dL (70-105); Osmolality,Calculated 292 (280-300); Potassium 3.4 mEq/L (3.5-5.1); Sodium 139 mEq/L (136-145); Total Protein 6.3 g/dL (6.4-8.9); eGFR For African Americans > 60 (> 60); eGFR For Non-African Americans > 60 (> 60)
[2021-09-01 11:56] LABS: Estimated Average Glucose 114 mg/dl; Hemoglobin A1C 5.6 %
[2021-09-01 12:39] LABS: Magnesium 1.1 mg/dL (1.6-2.6); Phosphorous 3.3 mg/dL (2.7-4.5)
[2021-09-01] MEDS: traZODone 50 MG TABLET PO SCH (21:00)
[2021-09-01] MEDS: risperiDONE 1 MG TABLET PO SCH (21:00)
[2021-09-01] MEDS: Acetaminophen 325 MG TABLET PO PRN (21:00)
[2021-09-01] MEDS: Topiramate 100 MG TABLET PO SCH (21:00)
[2021-09-02 05:46] LABS: Hematocrit 30.6 % (35.3-44.9); Hemoglobin 9.4 g/dL (11.5-15.4); Mean Corpuscular HGB Conc 30.7 g/dL (31.6-35.5); Mean Corpuscular Hemoglobin 28.7 pg (28.0-33.3); Mean Corpuscular Volume 93.3 fL (83.0-100.0); Mean Platelet Volume 10.2 fL (9.4-12.4); Red Blood Count 3.28 M/mcL (3.82-4.97); Red Cell Distribution Width 14.7 % (11.5-14.5); White Blood Count 1.4 K/mcL (4.3-11.1)
[2021-09-02 06:06] LABS: Alanine Aminotransferase 17 Units/L (7-52); Albumin 3.5 g/dL (3.5-5.7); Albumin/Globulin Ratio 1.3 (1.1-2.2); Alkaline Phosphatase 76 Units/L (34-104); Aspartate Amino Transferase 30 Units/L (13-39); BUN/Creatinine Ratio 18 (6-26); Bilirubin,Total 0.8 mg/dL (0.3-1.0); Blood Urea Nitrogen 11 mg/dL (6-20); Calcium 9.3 mg/dL (8.6-10.3); Carbon Dioxide 25 mEq/L (23-29); Chloride 108 mEq/L (98-107); Globulin 2.8 g/dL (2.4-3.5); Glucose 116 mg/dL (70-105); Osmolality,Calculated 288 (280-300); Potassium 3.6 mEq/L (3.5-5.1); Sodium 139 mEq/L (136-145); Total Protein 6.3 g/dL (6.4-8.9); eGFR For African Americans > 60 (> 60); eGFR For Non-African Americans > 60 (> 60)
[2021-09-02] MEDS: Insulin LISPRO 300 UNITS/3 ML VIAL SUBQ SCH ×4 (07:32→19:38)
[2021-09-02] MEDS: Budesonide/Formoterol 80/4.5 1 PUFF INH IH SCH ×2 (07:40→20:39)
[2021-09-02] MEDS: Gabapentin 300 MG CAPSULE PO SCH ×3 (07:54→20:31)
[2021-09-02] MEDS: Folic Acid 1 MG TABLET PO SCH (07:55)
[2021-09-02] MEDS: Topiramate 25 MG TABLET PO SCH (07:55)
[2021-09-02] MEDS: Loratadine 10 MG TABLET PO SCH (07:55)
[2021-09-02] MEDS: Thiamine (B-1) 100 MG TABLET PO SCH (07:55)
[2021-09-02] MEDS: Magnesium Oxide 400 MG TABLET PO SCH ×2 (07:55→20:31)
[2021-09-02] MEDS: risperiDONE 1 MG TABLET PO SCH (20:31)
[2021-09-02] MEDS: traZODone 50 MG TABLET PO SCH (20:31)
[2021-09-02] MEDS: Topiramate 100 MG TABLET PO SCH (20:32)
[2021-09-03 06:55] LABS: Hematocrit 29.4 % (35.3-44.9); Mean Corpuscular Volume 95.5 fL (83.0-100.0); Mean Platelet Volume 9.9 fL (9.4-12.4); Red Blood Count 3.08 M/mcL (3.82-4.97)
[2021-09-03 06:56] LABS: Hemoglobin 8.9 g/dL (11.5-15.4); Immature Platelets 2.9 % (1.1-6.1); Mean Corpuscular HGB Conc 30.3 g/dL (31.6-35.5); Mean Corpuscular Hemoglobin 28.9 pg (28.0-33.3); Red Cell Distribution Width 15.7 % (11.5-14.5); White Blood Count 1.6 K/mcL (4.3-11.1)
[2021-09-03 07:12] LABS: Alanine Aminotransferase 15 Units/L (7-52); Albumin 3.4 g/dL (3.5-5.7); Albumin/Globulin Ratio 1.3 (1.1-2.2); Alkaline Phosphatase 100 Units/L (34-104); Aspartate Amino Transferase 24 Units/L (13-39); BUN/Creatinine Ratio 19 (6-26); Bilirubin,Total 0.5 mg/dL (0.3-1.0); Blood Urea Nitrogen 12 mg/dL (6-20); Calcium 8.9 mg/dL (8.6-10.3); Carbon Dioxide 24 mEq/L (23-29); Chloride 108 mEq/L (98-107); Globulin 2.7 g/dL (2.4-3.5); Glucose 129 mg/dL (70-105); Osmolality,Calculated 295 (280-300); Potassium 3.8 mEq/L (3.5-5.1); Sodium 142 mEq/L (136-145); Total Protein 6.1 g/dL (6.4-8.9); eGFR For African Americans > 60 (> 60); eGFR For Non-African Americans > 60 (> 60)
[2021-09-03] MEDS: Loratadine 10 MG TABLET PO SCH (07:29)
[2021-09-03] MEDS: Gabapentin 300 MG CAPSULE PO SCH (07:29)
[2021-09-03] MEDS: Thiamine (B-1) 100 MG TABLET PO SCH (07:30)
[2021-09-03] MEDS: Folic Acid 1 MG TABLET PO SCH (07:30)
[2021-09-03] MEDS: Topiramate 25 MG TABLET PO SCH (07:30)
[2021-09-03] MEDS: Magnesium Oxide 400 MG TABLET PO SCH (07:30)
[2021-09-03] MEDS: Insulin LISPRO 300 UNITS/3 ML VIAL SUBQ SCH (07:34)
[2021-09-03 07:36] VITALS: BP 116/74; PULSE 81; TEMP 97.6; O2SAT 99
[2021-09-03] MEDS: Budesonide/Formoterol 80/4.5 1 PUFF INH IH SCH (07:36)
== END 2021-09-03 10:18 | disposition home or self-care (01) | DRG 897 ==
LOC: SUATTDRO → 3BNU 08:56 → EMEROOARM 08:56 → SUATTDRO 15:22 → 2NENU 15:48 → 3BNU 09-02 14:53
PROVIDERS: ADMIT Family Medicine; ATTEND Family Medicine

== ENCOUNTER 2021-12-10 11:28 | Inpatient (IN) ==
[2021-12-10 12:13] LABS: Eosinophils % 0.4 %; Hemoglobin 11.7 g/dL (11.5-15.4); Immature Granulocytes % 0.4 % (0-4); Mean Corpuscular Hemoglobin 27.9 pg (28.0-33.3); Red Cell Distribution Width 15.9 % (11.5-14.5)
[2021-12-10 12:15] LABS: Basophils % 0.8 %; Hematocrit 35.6 % (35.3-44.9); Immature Platelets 4.2 % (1.1-6.1); Lymphocytes # 1.1 K/mcL (0.6-4.6); Lymphocytes % 43.5 %; Mean Corpuscular HGB Conc 32.9 g/dL (31.6-35.5); Mean Corpuscular Volume 84.8 fL (83.0-100.0); Monocytes # 0.3 K/mcL (0.0-1.3); Monocytes % 10.8 %; Neutrophils # 1.2 K/mcL (1.6-8.9); Segmented Neutrophils % 44.1 %; White Blood Count 2.6 K/mcL (4.3-11.1)
[2021-12-10 12:17] LABS: Platelet Count 25 K/mcL (140-400)
[2021-12-10 12:30] LABS: INR 1.3; Prothrombin Time 14.3 Seconds (9.4-12.1)
[2021-12-10] MEDS ORDERED: 0.9 % Sodium Chloride 1,000 ML IVC ONE (12:30)
[2021-12-10 12:35] LABS: Alanine Aminotransferase 61 Units/L (7-52); Albumin 4.5 g/dL (3.5-5.7); Albumin/Globulin Ratio 1.3 (1.1-2.2); Alkaline Phosphatase 65 Units/L (34-104); Aspartate Amino Transferase 195 Units/L (13-39); BUN/Creatinine Ratio 15 (6-26); Bilirubin,Total 0.9 mg/dL (0.3-1.0); Blood Urea Nitrogen 8 mg/dL (6-20); Carbon Dioxide 24 mEq/L (23-29); Chloride 101 mEq/L (98-107); Creatine Kinase 99 Units/L (30-223); Ethanol 406 mg/dL (Less than 10); Globulin 3.5 g/dL (2.4-3.5); Glucose 173 mg/dL (70-105); Magnesium 1.2 mg/dL (1.6-2.6); Osmolality,Calculated 290 (280-300); Potassium 3.1 mEq/L (3.5-5.1); Sodium 139 mEq/L (136-145); Troponin I < 0.03 ng/mL (< 0.04); eGFR For African Americans > 60 (> 60); eGFR For Non-African Americans > 60 (> 60)
[2021-12-10 12:43] LABS: Lipase 18 Units/L (11-82)
[2021-12-10] MEDS ORDERED: Naloxone 0.4 MG/ML INJ IVP PRN (13:38)
[2021-12-10] MEDS ORDERED: Ondansetron ODT 4 MG TAB.RAPDIS PO PRN (13:56)
[2021-12-10 14:52] LABS: Bilirubin,Urine Negative (Negative); Blood,Urine Negative (Negative); Clarity,Urine Clear (Clear); Color,Urine Light-Yellow (Yellow); Glucose,Urine (UA) Normal (Normal); Ketones,Urine Negative (Negative); Leukocyte Esterase,Urine Negative (Negative); Nitrite,Urine Negative (Negative); PH,Urine 6.5 pH Units (5.0-8.0); Protein,Urine Negative (Neg-Trace); Specific Gravity,Urine 1.008 (1.010-1.025)
[2021-12-10 14:54] LABS: Amphetamine Screen,Urine Negative ng/mL (Cutoff=1000); Barbiturate Screen,Urine Negative ng/mL (Cutoff=200); Benzodiazepines Screen,Urine Negative ng/mL (Cutoff=200); Cannabinoid Screen,Urine Negative ng/mL (Cutoff = 50); Cocaine Screen,Urine Negative ng/mL (Cutoff= 300); Opiate Screen,Urine Negative ng/mL (Cutoff=300); Phencyclidine Screen,Urine Negative ng/mL (Cutoff=25)
[2021-12-10] MEDS ORDERED: *HR* LORazepam 2 MG/ML VIAL IVP ONE (15:53)
[2021-12-10] MEDS ORDERED: *HR* LORazepam 2 MG/ML VIAL IVP PRN (16:23)
[2021-12-10] MEDS: Gabapentin 300 MG CAPSULE PO SCH ×2 (16:39→21:48)
[2021-12-10] MEDS: Ondansetron 4 MG/2 ML VIAL IVP PRN (16:43)
[2021-12-10] MEDS: Thiamine (B-1) 100 MG, Folic Acid 1 MG, MVI, adult with vitamin K 10 ML in 0.9 % Sodi... IVPB SCH (18:06)
[2021-12-10] MEDS: Budesonide/Formoterol 80/4.5 1 PUFF INH IH SCH (20:02)
[2021-12-10] MEDS ORDERED: Topiramate 25 MG TABLET PO SCH (21:00)
[2021-12-10] MEDS: Melatonin 3 MG TABLET PO SCH (21:47)
[2021-12-10] MEDS: Magnesium Oxide 400 MG TABLET PO SCH (21:47)
[2021-12-10] MEDS: traZODone 50 MG TABLET PO SCH (21:47)
[2021-12-10] MEDS: risperiDONE 1 MG TABLET PO SCH (21:48)
[2021-12-10] MEDS ORDERED: Lactulose Oral Soln 20 GM/30 ML UDC PO PRN (22:57)
[2021-12-11] MEDS: 0.9 % Sodium Chloride 1,000 ML IVC SCH ×3 (00:58→18:02)
[2021-12-11 02:21] LABS: Hematocrit 31.1 % (35.3-44.9); Hemoglobin 9.8 g/dL (11.5-15.4); Immature Platelets 3.1 % (1.1-6.1); Mean Corpuscular HGB Conc 31.5 g/dL (31.6-35.5); Mean Corpuscular Hemoglobin 27.9 pg (28.0-33.3); Mean Corpuscular Volume 88.6 fL (83.0-100.0); Mean Platelet Volume 9.5 fL (9.4-12.4); Red Blood Count 3.51 M/mcL (3.82-4.97); Red Cell Distribution Width 16.1 % (11.5-14.5); White Blood Count 1.2 K/mcL (4.3-11.1)
[2021-12-11 02:42] LABS: Alanine Aminotransferase 54 Units/L (7-52); Albumin 3.7 g/dL (3.5-5.7); Albumin/Globulin Ratio 1.2 (1.1-2.2); Alkaline Phosphatase 62 Units/L (34-104); Aspartate Amino Transferase 189 Units/L (13-39); BUN/Creatinine Ratio 11 (6-26); Bilirubin,Total 0.9 mg/dL (0.3-1.0); Blood Urea Nitrogen 6 mg/dL (6-20); Calcium 8.3 mg/dL (8.6-10.3); Carbon Dioxide 24 mEq/L (23-29); Chloride 106 mEq/L (98-107); Globulin 3.1 g/dL (2.4-3.5); Glucose 71 mg/dL (70-105); Magnesium 1.8 mg/dL (1.6-2.6); Osmolality,Calculated 284 (280-300); Phosphorous 3.3 mg/dL (2.7-4.5); Potassium 3.9 mEq/L (3.5-5.1); Sodium 139 mEq/L (136-145); Total Protein 6.8 g/dL (6.4-8.9); eGFR For African Americans > 60 (> 60); eGFR For Non-African Americans > 60 (> 60)
[2021-12-11 06:22] LABS: Eosinophils % 0.8 %; Lymphocytes # 0.5 K/mcL (0.6-4.6); Lymphocytes % 44.9 %; Red Cell Distribution Width 15.9 % (11.5-14.5); White Blood Count 1.2 K/mcL (4.3-11.1)
[2021-12-11 06:24] LABS: Basophils % 0.8 %; Hematocrit 30.6 % (35.3-44.9); Hemoglobin 9.5 g/dL (11.5-15.4); Immature Platelets 3.4 % (1.1-6.1); Mean Corpuscular Hemoglobin 27.3 pg (28.0-33.3); Mean Corpuscular Volume 87.9 fL (83.0-100.0); Mean Platelet Volume 8.9 fL (9.4-12.4); Monocytes # 0.1 K/mcL (0.0-1.3); Monocytes % 11.9 %; Neutrophils # 0.5 K/mcL (1.6-8.9); Red Blood Count 3.48 M/mcL (3.82-4.97); Segmented Neutrophils % 41.6 %
[2021-12-11 06:29] LABS: Platelet Count 16 K/mcL (140-400)
[2021-12-11 06:48] LABS: Platelet Estimate Marked Decrease (Normal)
[2021-12-11] MEDS: Budesonide/Formoterol 80/4.5 1 PUFF INH IH SCH ×2 (07:30→19:40)
[2021-12-11] MEDS ORDERED: Dextrose 4 GM Chewable Tablets PO PRN ×2 (08:15)
[2021-12-11] MEDS ORDERED: D5% in Water 1,000 ML IVC PRN (08:15)
[2021-12-11] MEDS ORDERED: *HR* Dextrose 50 % in Water (Syg) 50 ML SYRINGE IVP PRN (08:15)
[2021-12-11] MEDS ORDERED: Topiramate 25 MG TABLET PO SCH (09:00)
[2021-12-11] MEDS: Nicotine 21 MG PATCH.TD24 TD SCH (09:36)
[2021-12-11] MEDS: Magnesium Oxide 400 MG TABLET PO SCH ×2 (09:38→20:07)
[2021-12-11] MEDS: Insulin LISPRO 300 UNITS/3 ML VIAL SUBQ SCH ×4 (09:38→19:57)
[2021-12-11] MEDS: Gabapentin 300 MG CAPSULE PO SCH ×3 (09:38→20:08)
[2021-12-11] MEDS: Loratadine 10 MG TABLET PO SCH (09:38)
[2021-12-11] MEDS: Topiramate 100 MG TABLET PO SCH ×2 (09:38→20:08)
[2021-12-11] MEDS: M PROGEST ACET PO SCH (09:39)
[2021-12-11] MEDS: ESTROGEN CON PO SCH (09:39)
[2021-12-11 09:43] LABS: Hepatitis B Surface Antigen Nonreactive (Nonreactive)
[2021-12-11 09:52] LABS: Estimated Average Glucose 105 mg/dl; Hemoglobin A1C 5.3 %
[2021-12-11] MEDS: *HR* LORazepam 2 MG/ML VIAL IVP PRN (09:54)
[2021-12-11] MEDS: Baclofen 10 MG TABLET PO PRN (09:54)
[2021-12-11] MEDS: Ondansetron 4 MG/2 ML VIAL IVP PRN (09:54)
[2021-12-11 10:12] LABS: Hepatitis B Core IgM Nonreactive (Nonreactive)
[2021-12-11 10:13] LABS: Hepatitis A Antibody IgM Nonreactive (Nonreactive)
[2021-12-11 12:00] LABS: Hepatitis C Virus Antibody Reactive (Nonreactive)
[2021-12-11] MEDS: Thiamine (B-1) 100 MG, Folic Acid 1 MG, MVI, adult with vitamin K 10 ML in 0.9 % Sodi... IVPB SCH (18:04)
[2021-12-11] MEDS: traZODone 50 MG TABLET PO SCH (20:08)
[2021-12-11] MEDS: Melatonin 3 MG TABLET PO SCH (20:08)
[2021-12-11] MEDS: risperiDONE 1 MG TABLET PO SCH (20:08)
[2021-12-12 01:34] LABS: Eosinophils % 2.2 %
[2021-12-12 01:36] LABS: Hemoglobin 9.2 g/dL (11.5-15.4); Immature Platelets 5.8 % (1.1-6.1); Lymphocytes # 0.4 K/mcL (0.6-4.6); Lymphocytes % 47.3 %; Mean Corpuscular HGB Conc 31.7 g/dL (31.6-35.5); Mean Corpuscular Hemoglobin 28.3 pg (28.0-33.3); Mean Corpuscular Volume 89.2 fL (83.0-100.0); Mean Platelet Volume 9.3 fL (9.4-12.4); Monocytes # 0.1 K/mcL (0.0-1.3); Monocytes % 12.9 %; Red Blood Count 3.25 M/mcL (3.82-4.97); Red Cell Distribution Width 15.7 % (11.5-14.5); Segmented Neutrophils % 37.6 %
[2021-12-12] MEDS: 0.9 % Sodium Chloride 1,000 ML IVC SCH ×4 (01:39→22:10)
[2021-12-12 01:50] LABS: % Iron Saturation 34 % (15-50); Iron 132 mcg/dL (50-170); Neutrophils # 0.3 K/mcL (1.6-8.9); Transferrin 275 mg/dL (203-362); White Blood Count 0.9 K/mcL (4.3-11.1)
[2021-12-12 01:51] LABS: Platelet Count 16 K/mcL (140-400)
[2021-12-12 02:02] LABS: Ferritin 26 ng/mL (10-120)
[2021-12-12 02:09] LABS: Folate > 22.3 ng/mL (3.0-16.0); Vitamin B12 373 pg/mL (250-1100)
[2021-12-12 03:19] LABS: Platelet Estimate Marked Decrease (Normal)
[2021-12-12] MEDS: Magnesium Oxide 400 MG TABLET PO SCH ×2 (08:19→22:05)
[2021-12-12] MEDS: Gabapentin 300 MG CAPSULE PO SCH ×3 (08:19→22:06)
[2021-12-12] MEDS: Baclofen 10 MG TABLET PO PRN (08:20)
[2021-12-12] MEDS: Topiramate 100 MG TABLET PO SCH ×2 (08:20→22:05)
[2021-12-12] MEDS: ESTROGEN CON PO SCH (08:20)
[2021-12-12] MEDS: Loratadine 10 MG TABLET PO SCH (08:20)
[2021-12-12] MEDS: M PROGEST ACET PO SCH (08:20)
[2021-12-12] MEDS: Insulin LISPRO 300 UNITS/3 ML VIAL SUBQ SCH ×4 (08:22→22:06)
[2021-12-12] MEDS: Nicotine 21 MG PATCH.TD24 TD SCH (08:25)
[2021-12-12] MEDS: Budesonide/Formoterol 80/4.5 1 PUFF INH IH SCH ×2 (10:50→20:40)
[2021-12-12] MEDS: Thiamine (B-1) 100 MG, Folic Acid 1 MG, MVI, adult with vitamin K 10 ML in 0.9 % Sodi... IVPB SCH (16:03)
[2021-12-12] MEDS: traZODone 50 MG TABLET PO SCH (22:06)
[2021-12-12] MEDS: Melatonin 3 MG TABLET PO SCH (22:06)
[2021-12-12] MEDS: risperiDONE 1 MG TABLET PO SCH (22:08)
[2021-12-13] MEDS: *HR* LORazepam 2 MG/ML VIAL IVP PRN (01:06)
[2021-12-13 04:36] LABS: Eosinophils % 1.7 %; Red Cell Distribution Width 15.9 % (11.5-14.5); White Blood Count 1.2 K/mcL (4.3-11.1)
[2021-12-13 04:38] LABS: Hematocrit 31.1 % (35.3-44.9); Hemoglobin 9.4 g/dL (11.5-15.4); Immature Platelets 7.4 % (1.1-6.1); Lymphocytes % 37.6 %; Mean Corpuscular HGB Conc 30.2 g/dL (31.6-35.5); Mean Corpuscular Hemoglobin 27.6 pg (28.0-33.3); Mean Corpuscular Volume 91.2 fL (83.0-100.0); Mean Platelet Volume 10.5 fL (9.4-12.4); Monocytes # 0.1 K/mcL (0.0-1.3); Monocytes % 11.1 %; Neutrophils # 0.6 K/mcL (1.6-8.9); Red Blood Count 3.41 M/mcL (3.82-4.97); Segmented Neutrophils % 49.6 %
[2021-12-13 04:57] LABS: Alanine Aminotransferase 46 Units/L (7-52); Albumin 3.7 g/dL (3.5-5.7); Albumin/Globulin Ratio 1.1 (1.1-2.2); Alkaline Phosphatase 89 Units/L (34-104); Aspartate Amino Transferase 93 Units/L (13-39); BUN/Creatinine Ratio 14 (6-26); Blood Urea Nitrogen 7 mg/dL (6-20); Calcium 9.4 mg/dL (8.6-10.3); Carbon Dioxide 23 mEq/L (23-29); Chloride 108 mEq/L (98-107); Globulin 3.5 g/dL (2.4-3.5); Glucose 114 mg/dL (70-105); Magnesium 1.2 mg/dL (1.6-2.6); Osmolality,Calculated 287 (280-300); Phosphorous 5.2 mg/dL (2.7-4.5); Potassium 3.4 mEq/L (3.5-5.1); Sodium 139 mEq/L (136-145); Total Protein 7.2 g/dL (6.4-8.9); eGFR For African Americans > 60 (> 60); eGFR For Non-African Americans > 60 (> 60)
[2021-12-13 05:06] LABS: Lymphocytes # 0.5 K/mcL (0.6-4.6)
[2021-12-13 05:07] LABS: Platelet Count 17 K/mcL (140-400)
[2021-12-13 05:08] LABS: Platelet Estimate Marked Decrease (Normal)
[2021-12-13] MEDS: Budesonide/Formoterol 80/4.5 1 PUFF INH IH SCH ×2 (07:31→19:47)
[2021-12-13] MEDS: Insulin LISPRO 300 UNITS/3 ML VIAL SUBQ SCH ×4 (08:50→19:46)
[2021-12-13] MEDS: Nicotine 21 MG PATCH.TD24 TD SCH (10:26)
[2021-12-13] MEDS: Loratadine 10 MG TABLET PO SCH (10:28)
[2021-12-13] MEDS: Magnesium Oxide 400 MG TABLET PO SCH ×2 (10:28→19:45)
[2021-12-13] MEDS: Gabapentin 300 MG CAPSULE PO SCH ×3 (10:28→19:45)
[2021-12-13] MEDS: Topiramate 100 MG TABLET PO SCH ×2 (10:28→19:45)
[2021-12-13] MEDS: Folic Acid 1 MG TABLET PO SCH (10:29)
[2021-12-13] MEDS: Multivit/Ca/Min/Fe/FA 1 TAB TABLET PO SCH (10:29)
[2021-12-13] MEDS: Thiamine (B-1) 100 MG TABLET PO SCH (10:29)
[2021-12-13] MEDS: 0.9 % Sodium Chloride 1,000 ML IVC SCH ×2 (10:46→15:36)
[2021-12-13] MEDS: ESTROGEN CON PO SCH (10:58)
[2021-12-13] MEDS: M PROGEST ACET PO SCH (10:58)
[2021-12-13] MEDS: Melatonin 3 MG TABLET PO SCH (19:44)
[2021-12-13] MEDS: traZODone 50 MG TABLET PO SCH (19:45)
[2021-12-13] MEDS: risperiDONE 1 MG TABLET PO SCH (19:45)
[2021-12-14 01:47] LABS: Hemoglobin 9.7 g/dL (11.5-15.4)
[2021-12-14 01:50] LABS: Eosinophils % 1.2 %; Hematocrit 31.6 % (35.3-44.9); Immature Platelets 7.5 % (1.1-6.1); Lymphocytes # 0.4 K/mcL (0.6-4.6); Lymphocytes % 25.7 %; Mean Corpuscular HGB Conc 30.7 g/dL (31.6-35.5); Mean Corpuscular Hemoglobin 27.6 pg (28.0-33.3); Mean Platelet Volume 11.5 fL (9.4-12.4); Monocytes # 0.2 K/mcL (0.0-1.3); Monocytes % 12.6 %; Red Blood Count 3.51 M/mcL (3.82-4.97); Segmented Neutrophils % 60.5 %; White Blood Count 1.7 K/mcL (4.3-11.1)
[2021-12-14 01:56] LABS: Platelet Count 24 K/mcL (140-400)
[2021-12-14 02:07] LABS: BUN/Creatinine Ratio 17 (6-26); Blood Urea Nitrogen 11 mg/dL (6-20); Calcium 9.3 mg/dL (8.6-10.3); Carbon Dioxide 22 mEq/L (23-29); Chloride 109 mEq/L (98-107); Glucose 111 mg/dL (70-105); Magnesium 1.3 mg/dL (1.6-2.6); Osmolality,Calculated 286 (280-300); Phosphorous 4.8 mg/dL (2.7-4.5); Potassium 3.7 mEq/L (3.5-5.1); Sodium 138 mEq/L (136-145); eGFR For African Americans > 60 (> 60); eGFR For Non-African Americans > 60 (> 60)
[2021-12-14] MEDS: 0.9 % Sodium Chloride 1,000 ML IVC SCH ×4 (04:52→21:32)
[2021-12-14] MEDS: Budesonide/Formoterol 80/4.5 1 PUFF INH IH SCH ×2 (07:32→20:04)
[2021-12-14] MEDS: Nicotine 21 MG PATCH.TD24 TD SCH (08:06)
[2021-12-14] MEDS: Magnesium Oxide 400 MG TABLET PO SCH ×2 (08:06→21:32)
[2021-12-14] MEDS: Loratadine 10 MG TABLET PO SCH (08:07)
[2021-12-14] MEDS: Thiamine (B-1) 100 MG TABLET PO SCH (08:07)
[2021-12-14] MEDS: Gabapentin 300 MG CAPSULE PO SCH ×3 (08:07→21:32)
[2021-12-14] MEDS: Topiramate 100 MG TABLET PO SCH ×2 (08:07→21:32)
[2021-12-14] MEDS: M PROGEST ACET PO SCH (08:07)
[2021-12-14] MEDS: Folic Acid 1 MG TABLET PO SCH (08:07)
[2021-12-14] MEDS: Multivit/Ca/Min/Fe/FA 1 TAB TABLET PO SCH (08:07)
[2021-12-14] MEDS: ESTROGEN CON PO SCH (08:07)
[2021-12-14] MEDS: Insulin LISPRO 300 UNITS/3 ML VIAL SUBQ SCH ×4 (08:09→21:20)
[2021-12-14] MEDS: traZODone 50 MG TABLET PO SCH (21:32)
[2021-12-14] MEDS: risperiDONE 1 MG TABLET PO SCH (21:32)
[2021-12-14] MEDS: Melatonin 3 MG TABLET PO SCH (21:33)
[2021-12-15] MEDS: 0.9 % Sodium Chloride 1,000 ML IVC SCH (05:12)
[2021-12-15] MEDS: ESTROGEN CON PO SCH (07:05)
[2021-12-15] MEDS: M PROGEST ACET PO SCH (07:05)
[2021-12-15 07:24] VITALS: BP 137/89; PULSE 75; TEMP 98.2
[2021-12-15] MEDS: Insulin LISPRO 300 UNITS/3 ML VIAL SUBQ SCH (07:36)
[2021-12-15] MEDS: Budesonide/Formoterol 80/4.5 1 PUFF INH IH SCH (07:43)
[2021-12-15 07:49] VITALS: O2SAT 99
[2021-12-15] MEDS: Thiamine (B-1) 100 MG TABLET PO SCH (08:16)
[2021-12-15] MEDS: Nicotine 21 MG PATCH.TD24 TD SCH (08:16)
[2021-12-15] MEDS: Folic Acid 1 MG TABLET PO SCH (08:17)
[2021-12-15] MEDS: Multivit/Ca/Min/Fe/FA 1 TAB TABLET PO SCH (08:17)
[2021-12-15] MEDS: Gabapentin 300 MG CAPSULE PO SCH (08:17)
[2021-12-15] MEDS: Topiramate 100 MG TABLET PO SCH (08:17)
[2021-12-15] MEDS: Loratadine 10 MG TABLET PO SCH (08:17)
[2021-12-15] MEDS: Magnesium Oxide 400 MG TABLET PO SCH (08:21)
[2021-12-15 08:35] LABS: Basophils % 0.7 %; Hematocrit 30.6 % (35.3-44.9); Hemoglobin 9.4 g/dL (11.5-15.4); Mean Corpuscular HGB Conc 30.7 g/dL (31.6-35.5)
[2021-12-15 08:37] LABS: Immature Platelets 6.6 % (1.1-6.1); Lymphocytes # 0.6 K/mcL (0.6-4.6); Lymphocytes % 36.4 %; Mean Corpuscular Hemoglobin 28.4 pg (28.0-33.3); Mean Corpuscular Volume 92.4 fL (83.0-100.0); Mean Platelet Volume 11.5 fL (9.4-12.4); Monocytes # 0.2 K/mcL (0.0-1.3); Monocytes % 15.2 %; Neutrophils # 0.7 K/mcL (1.6-8.9); Red Blood Count 3.31 M/mcL (3.82-4.97); Red Cell Distribution Width 16.5 % (11.5-14.5); Segmented Neutrophils % 45.7 %; White Blood Count 1.5 K/mcL (4.3-11.1)
[2021-12-15 08:44] LABS: Platelet Count 30 K/mcL (140-400)
[2021-12-15 09:09] LABS: Platelet Estimate Decreased (Normal)
== END 2021-12-15 11:05 | disposition home or self-care (01) | DRG 897 ==
LOC: 3BNU 11:28 → EMEROOARM 11:28 → SUATTDRO 15:23 → 3BNU 16:22
PROVIDERS: ADMIT Pharmacist; ATTEND Internal Medicine

== ENCOUNTER 2022-01-19 15:36 | Inpatient (IN) ==
[2022-01-19] MEDS ORDERED: diazePAM 10 MG/2 ML SYRINGE IVP PRN ×4 (16:32)
[2022-01-19] MEDS ORDERED: Pantoprazole 40 MG VIAL IVP ONE (16:34)
[2022-01-19] MEDS ORDERED: Iopamidol - 370 500 ML MLS IVP ONE (16:34)
[2022-01-19] MEDS ORDERED: Ondansetron 4 MG/2 ML VIAL IVP PRN (16:34)
[2022-01-19] MEDS ORDERED: 0.9 % Sodium Chloride 1,000 ML IV ONE (16:34)
[2022-01-19] MEDS ORDERED: Thiamine (B-1) 100 MG TABLET PO SCH (16:45)
[2022-01-19] MEDS ORDERED: Folic Acid 1 MG TABLET PO SCH (16:45)
[2022-01-19 17:17] LABS: Basophils % 0.3 %; Hemoglobin 11.6 g/dL (11.5-15.4); Mean Corpuscular Hemoglobin 29.8 pg (28.0-33.3); Red Blood Count 3.89 M/mcL (3.82-4.97)
[2022-01-19 17:19] LABS: Hematocrit 34.6 % (35.3-44.9); Immature Platelets 1.9 % (1.1-6.1); Lymphocytes # 0.8 K/mcL (0.6-4.6); Lymphocytes % 22.1 %; Mean Corpuscular HGB Conc 33.5 g/dL (31.6-35.5); Mean Corpuscular Volume 88.9 fL (83.0-100.0); Mean Platelet Volume 9.3 fL (9.4-12.4); Monocytes # 0.2 K/mcL (0.0-1.3); Monocytes % 6.5 %; Neutrophils # 2.4 K/mcL (1.6-8.9); Red Cell Distribution Width 18.6 % (11.5-14.5); Segmented Neutrophils % 71.1 %; White Blood Count 3.4 K/mcL (4.3-11.1)
[2022-01-19 17:20] LABS: Platelet Count 53 K/mcL (140-400)
[2022-01-19 17:26] LABS: INR 1.4; Prothrombin Time 15.5 Seconds (9.4-12.1)
[2022-01-19 17:28] LABS: Activated Partial Thrombo Time 30.8 Seconds (26.0-36.0)
[2022-01-19] MEDS: Vitamin B Complex/Vit C/Vit E 1 EACH TABLET PO SCH (17:57)
[2022-01-19 18:38] LABS: Alanine Aminotransferase 26 Units/L (7-52); Albumin 3.5 g/dL (3.5-5.7); Albumin/Globulin Ratio 1.1 (1.1-2.2); Alkaline Phosphatase 60 Units/L (34-104); Amylase 36 Units/L (29-103); Aspartate Amino Transferase 48 Units/L (13-39); BUN/Creatinine Ratio 9 (6-26); Bilirubin,Direct 0.4 mg/dL (0.0-0.2); Bilirubin,Indirect 0.7 mg/dL (0.0-1.0); Bilirubin,Total 1.1 mg/dL (0.3-1.0); Blood Urea Nitrogen 5 mg/dL (6-20); Calcium 8.2 mg/dL (8.6-10.3); Carbon Dioxide 20 mEq/L (23-29); Chloride 103 mEq/L (98-107); Globulin 3.3 g/dL (2.4-3.5); Glucose 78 mg/dL (70-105); Lipase 4 Units/L (11-82); Osmolality,Calculated 280 (280-300); Potassium 3.2 mEq/L (3.5-5.1); Sodium 137 mEq/L (136-145); Total Protein 6.8 g/dL (6.4-8.9); Troponin I < 0.03 ng/mL (< 0.04); eGFR For African Americans > 60 (> 60); eGFR For Non-African Americans > 60 (> 60)
[2022-01-19] MEDS ORDERED: Potassium Chloride 40 MEQ in D5% in 0.9% NACL 1,000 ML IVC SCH (19:45)
[2022-01-19 19:53] LABS: Bilirubin,Urine Negative (Negative); Blood,Urine Negative (Negative); Clarity,Urine Clear (Clear); Color,Urine Yellow (Yellow); Glucose,Urine (UA) Normal (Normal); Ketones,Urine 20 mg/dL (Negative); Leukocyte Esterase,Urine Negative (Negative); Nitrite,Urine Negative (Negative); PH,Urine 7.5 pH Units (5.0-8.0); Protein,Urine Trace mg/dL (Neg-Trace); Specific Gravity,Urine > 1.030 (1.010-1.025); Urobilinogen,Urine Normal (Normal)
[2022-01-19 20:10] LABS: Amphetamine Screen,Urine Negative ng/mL (Cutoff=1000); Barbiturate Screen,Urine Negative ng/mL (Cutoff=200); Benzodiazepines Screen,Urine Positive ng/mL (Cutoff=200); Cannabinoid Screen,Urine Negative ng/mL (Cutoff = 50); Cocaine Screen,Urine Negative ng/mL (Cutoff= 300); Opiate Screen,Urine Negative ng/mL (Cutoff=300); Phencyclidine Screen,Urine Negative ng/mL (Cutoff=25)
[2022-01-19] MEDS ORDERED: Melatonin 3 MG TABLET PO PRN (20:32)
[2022-01-19] MEDS ORDERED: Ondansetron ODT 4 MG TAB.RAPDIS SL PRN (20:32)
[2022-01-19] MEDS ORDERED: Naloxone 0.4 MG/ML INJ IVP PRN (20:32)
[2022-01-19] MEDS ORDERED: Baclofen 10 MG TABLET PO PRN (21:19)
[2022-01-19] MEDS: diazePAM 10 MG/2 ML SYRINGE IVP PRN (21:57)
[2022-01-19] MEDS ORDERED: Prochlorperazine 10 MG/2 ML VIAL IVP ONE (21:59)
[2022-01-19] MEDS ORDERED: Thiamine (B-1) 100 MG in 0.9 % Sodium Chloride 50 ML IVPB ONE (22:00)
[2022-01-19] MEDS: traZODone 50 MG TABLET PO SCH (23:02)
[2022-01-19] MEDS: Gabapentin 300 MG CAPSULE PO SCH (23:03)
[2022-01-19] MEDS: risperiDONE 1 MG TABLET PO SCH (23:03)
[2022-01-20] MEDS: Ondansetron 4 MG/2 ML VIAL IVP SCH ×4 (00:37→17:09)
[2022-01-20] MEDS: diazePAM 10 MG/2 ML SYRINGE IVP PRN ×3 (04:34→12:13)
[2022-01-20 06:38] LABS: Red Cell Distribution Width 18.6 % (11.5-14.5)
[2022-01-20 06:40] LABS: Hematocrit 33.8 % (35.3-44.9); Immature Platelets 1.3 % (1.1-6.1); Mean Corpuscular HGB Conc 32.5 g/dL (31.6-35.5); Mean Corpuscular Hemoglobin 29.9 pg (28.0-33.3); Mean Corpuscular Volume 91.8 fL (83.0-100.0); Mean Platelet Volume 9.6 fL (9.4-12.4); Red Blood Count 3.68 M/mcL (3.82-4.97); White Blood Count 1.3 K/mcL (4.3-11.1)
[2022-01-20 06:51] LABS: Alanine Aminotransferase 22 Units/L (7-52); Albumin 3.4 g/dL (3.5-5.7); Albumin/Globulin Ratio 1.3 (1.1-2.2); Alkaline Phosphatase 57 Units/L (34-104); Aspartate Amino Transferase 39 Units/L (13-39); BUN/Creatinine Ratio 9 (6-26); Bilirubin,Total 1.3 mg/dL (0.3-1.0); Blood Urea Nitrogen 5 mg/dL (6-20); Carbon Dioxide 23 mEq/L (23-29); Chloride 104 mEq/L (98-107); Globulin 2.7 g/dL (2.4-3.5); Glucose 99 mg/dL (70-105); Osmolality,Calculated 279 (280-300); Phosphorous 3.5 mg/dL (2.7-4.5); Potassium 3.3 mEq/L (3.5-5.1); Sodium 136 mEq/L (136-145); Total Protein 6.1 g/dL (6.4-8.9); eGFR For African Americans > 60 (> 60); eGFR For Non-African Americans > 60 (> 60)
[2022-01-20] MEDS: Topiramate 100 MG TABLET PO SCH ×2 (07:53→20:22)
[2022-01-20] MEDS: Folic Acid 1 MG TABLET PO SCH (07:53)
[2022-01-20] MEDS: Gabapentin 300 MG CAPSULE PO SCH ×3 (07:53→20:22)
[2022-01-20] MEDS: Vitamin B Complex/Vit C/Vit E 1 EACH TABLET PO SCH (07:53)
[2022-01-20] MEDS ORDERED: Potassium Chloride Elixir 20 MEQ/15 ML UDC PO ONE (07:58)
[2022-01-20] MEDS ORDERED: Gabapentin 300 MG CAPSULE PO SCH (09:00)
[2022-01-20] MEDS: Thiamine (B-1) 100 MG in 0.9 % Sodium Chloride 50 ML IVPB SCH (10:05)
[2022-01-20] MEDS: 0.9 % Sodium Chloride 1,000 ML IVC SCH ×2 (11:05→17:09)
[2022-01-20] MEDS: traZODone 50 MG TABLET PO SCH (20:22)
[2022-01-20] MEDS: risperiDONE 1 MG TABLET PO SCH (20:22)
[2022-01-20] MEDS ORDERED: risperiDONE 1 MG TABLET PO SCH (21:00)
[2022-01-20] MEDS ORDERED: traZODone 50 MG TABLET PO SCH ×2 (21:00)
[2022-01-20] MEDS ORDERED: Melatonin 3 MG TABLET PO SCH (21:00)
[2022-01-21] MEDS: Ondansetron 4 MG/2 ML VIAL IVP SCH ×3 (00:39→12:25)
[2022-01-21] MEDS: 0.9 % Sodium Chloride 1,000 ML IVC SCH ×2 (03:47→13:20)
[2022-01-21] MEDS: Thiamine (B-1) 100 MG in 0.9 % Sodium Chloride 50 ML IVPB SCH (07:54)
[2022-01-21] MEDS: Folic Acid 1 MG TABLET PO SCH (07:55)
[2022-01-21] MEDS: Gabapentin 300 MG CAPSULE PO SCH ×2 (07:55→15:19)
[2022-01-21] MEDS: Vitamin B Complex/Vit C/Vit E 1 EACH TABLET PO SCH (07:55)
[2022-01-21] MEDS: Topiramate 100 MG TABLET PO SCH (07:55)
[2022-01-21 07:58] VITALS: TEMP 98.5
[2022-01-21] MEDS ORDERED: Prempro 0.625/2.5 MG TABLET PO SCH (09:00)
[2022-01-21 11:43] LABS: Hemoglobin 12.1 g/dL (11.5-15.4); Mean Corpuscular Volume 96.3 fL (83.0-100.0); Red Cell Distribution Width 18.6 % (11.5-14.5)
[2022-01-21 11:45] LABS: Hematocrit 38.9 % (35.3-44.9); Immature Platelets 3.3 % (1.1-6.1); Mean Corpuscular HGB Conc 31.1 g/dL (31.6-35.5); Mean Platelet Volume 11.3 fL (9.4-12.4); Red Blood Count 4.04 M/mcL (3.82-4.97); White Blood Count 1.9 K/mcL (4.3-11.1)
[2022-01-21 11:48] VITALS: BP 134/98; PULSE 92; O2SAT 97
[2022-01-21 12:25] LABS: BUN/Creatinine Ratio 5 (6-26); Blood Urea Nitrogen 3 mg/dL (6-20); Calcium 9.2 mg/dL (8.6-10.3); Carbon Dioxide 21 mEq/L (23-29); Chloride 109 mEq/L (98-107); Glucose 89 mg/dL (70-105); Magnesium 1.2 mg/dL (1.6-2.6); Osmolality,Calculated 280 (280-300); Potassium 4.3 mEq/L (3.5-5.1); Sodium 137 mEq/L (136-145); eGFR For African Americans > 60 (> 60); eGFR For Non-African Americans > 60 (> 60)
== END 2022-01-21 16:15 | disposition home or self-care (01) | DRG 897 ==
LOC: EMEROOARM 15:36 → 2NNU 15:36 → SUATTDRO 20:29 → 2NNU 21:18
PROVIDERS: ADMIT Internal Medicine; ATTEND Internal Medicine